=== PATIENT | female | born 1940 | race Caucasian/White ===

== ENCOUNTER 2016-04-19 10:35 | Outpatient (CLI) | payer MEDICARE | END 2016-04-19 10:36 | disposition home or self-care (01) | DX: R31.9 Hematuria, unspecified (principal) ==

== ENCOUNTER 2016-04-19 12:44 | Outpatient (CLI) | payer MEDICARE ==
[2016-04-19] MEDS ORDERED: IOPAMIDOL-300 50 ML VIAL PO ONE (14:46)
[2016-04-19] MEDS ORDERED: IOPAMIDOL-300 100 ML VIAL IVP ONE (14:46)
== END 2016-04-19 12:45 | disposition home or self-care (01) ==
DX: K57.32 Diverticulitis of large intestine without perforation or abscess without bleeding (principal); R31.9 Hematuria, unspecified
CPT/HCPCS: 36415; 74177; 80048; 87086; Q9967

== ENCOUNTER 2016-05-28 14:34 | Outpatient (CLI) | payer MEDICARE ==
--- NOTE | 2016-05-29 17:31 | Mammography Report ---
DIGITAL SCREENING MAMMOGRAM: 05/28/2016 CLINICAL INDICATION: A 76-year-old for screening. COMPARISON: 04/2015, 03/2014, 02/2013, 01/2012, 10/2010, 10/2009, 10/2008, 10/2007, 10/2006. TECHNIQUE: Routine CC and MLO projections were obtained of the breasts. The breasts demonstrate heterogeneously dense fibroglandular parenchyma bilaterally. Coarse and punc shelby, typically benign calcifications are present. No suspicious masses, clustered microcalcificatio ns, or regions of architectural distortion are identified. IMPRESSION: BENIGN FINDINGS. RECOMMENDATION: ROUTINE ANNUAL SCREENING UNLESS OTHERWISE CLINICALLY INDICATED. BIRADS CATEGORY: 2, BENIGN FINDINGS. STANDARD QUALIFYING STATEMENTS 1. This examination was reviewed with the aid of Computed-Aided Detection (CAD). 2. A negative or benign imaging report should not delay biopsy if clinically suspicious findings are present. Consider surgical consultation if warranted. More than 5% of cancers are not identified b y imaging. 3. Dense breasts may obscure an underlying neoplasm. JOB #: [id number] EXT JOB #:[id number]
== END 2016-05-28 14:35 | disposition home or self-care (01) ==
LOC: DI.N 14:34
PROVIDERS: ATTEND Family Medicine
DX: Z12.31 Encounter for screening mammogram for malignant neoplasm of breast (principal)
CPT/HCPCS: 77067

== ENCOUNTER 2016-09-26 08:00 | Outpatient (CLI) | payer MEDICARE ==
[2016-09-26 13:44] LABS: BASOPHILS # (AUTO) 0.1 10^3/uL (0.0-0.1); BASOPHILS % (AUTO) 1.2 %; EOSINOPHILS # (AUTO) 0.5 10^3/uL (0.0-0.7); EOSINOPHILS % (AUTO) 5.5 %; HCT - HEMATOCRIT 40.6 % (37.0-47.0); HGB - HEMOGLOBIN 13.7 g/dL (12.0-16.0); LYMPHOCYTES # (AUTO) 2.8 10^3/uL (1.5-3.5); LYMPHOCYTES % (AUTO) 27.8 %; MEAN CORPUSCULAR HEMOGLOBIN 30.4 pg (27.0-31.0); MEAN CORPUSCULAR HGB CONC 33.8 g/dL (32.0-36.0); MEAN CORPUSCULAR VOLUME 90.1 fL (81.0-99.0); MEAN PLATELET VOLUME 7.6 fL (7.9-10.8); MONOCYTES # (AUTO) 0.9 10^3/uL (0.0-1.0); MONOCYTES % (AUTO) 9.2 %; NEUTROPHILS # (AUTO) 5.6 10^3/uL (1.5-6.6); NEUTROPHILS % (AUTO) 56.3 %; RED CELL DISTRIBUTION WIDTH 14.2 % (12.0-15.0); UNCORRECTED WHITE BLOOD COUNT 9.9 x10^3/uL; WHITE BLOOD COUNT 9.9 x10^3/uL (4.8-10.8)
[2016-09-26 14:01] LABS: ALBUMIN/GLOBULIN RATIO 1.2 (1.0-2.2); BILIRUBIN,TOTAL 1.1 mg/dL (0.2-1.0); CALCIUM 9.2 mg/dL (8.5-10.3); CREATININE 0.6 mg/dL (0.4-1.0); POTASSIUM 4.1 mmol/L (3.5-5.0); TOTAL PROTEIN 7.4 g/dL (6.7-8.2)
== END 2016-09-26 08:01 | disposition home or self-care (01) ==
LOC: LAB.WCP 08:00
PROVIDERS: ATTEND Family Medicine
DX: M81.0 Age-related osteoporosis without current pathological fracture (principal)
CPT/HCPCS: 36415; 80053; 85025

== ENCOUNTER 2016-11-08 09:00 | Outpatient (CLI) | payer OTHER, MEDICARE | END 2016-11-08 09:01 | disposition EMS.NT | LOC: EMS 09:00 | PROVIDERS: ATTEND Surgery | DX: Z04.1 Encounter for examination and observation following transport accident (principal); V59.88XA Occupant (driver) (passenger) of pick-up truck or van injured in other specified transport accidents, initial encounter; Y92.414 Local residential or business street as the place of occurrence of the external cause ==

== ENCOUNTER 2016-11-08 09:42 | Emergency (ER) | payer OTHER, MEDICARE ==
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
--- NOTE | 2016-11-08 11:01 | CT Preliminary Report ---
Exam: CT Chest W/O IMPRESSION: 1. The lungs demonstrate no evidence of consolidation or pneumothorax. 2. There is displaced left fourth lateral rib fracture. 3. Heart size is within normal limits. Aortic contour is normal. No evidence of mediastinal hematoma. [facility] SITE ID: [id number]
--- NOTE | 2016-11-08 11:04 | CT Preliminary Report ---
Exam: CT Head W/O IMPRESSION: No acute intracranial CT abnormality. [facility] SITE ID: [id number]
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
[2016-11-08 11:46] VITALS: BP 148/74
== END 2016-11-08 11:46 | disposition home or self-care (01) ==
LOC: ED 09:42
DX: S22.32XA Fracture of one rib, left side, initial encounter for closed fracture (principal); S06.0X9A Concussion with loss of consciousness of unspecified duration, initial encounter; V57.5XXA Driver of pick-up truck or van injured in collision with fixed or stationary object in traffic accident, initial encounter; Y93.84 Activity, sleeping; Z79.82 Long term (current) use of aspirin
CPT/HCPCS: 70450; 71250; 93005; 99283

== ENCOUNTER 2017-06-26 10:43 | Outpatient (CLI) | payer MEDICARE ==
[2017-06-26] MEDS ORDERED: IOPAMIDOL-300 50 ML VIAL PO ONE (10:58)
[2017-06-26 11:20] LABS: ALBUMIN 3.9 g/dL (3.2-5.5); BILIRUBIN,TOTAL 0.9 mg/dL (0.2-1.0); CREATININE 0.7 mg/dL (0.4-1.0); TOTAL PROTEIN 7.8 g/dL (6.7-8.2)
[2017-06-26] MEDS ORDERED: IOPAMIDOL-300 100 ML VIAL IVP ONE (12:04)
--- NOTE | 2017-06-26 12:33 | CT Report ---
CT ABDOMEN AND PELVIS WITH CONTRAST: 06/26/2017 CLINICAL INDICATION: Left lower quadrant pain. TECHNIQUE: Axial CT images of the abdomen and pelvis were obtained with 100 mL Isovue 300 intravenously as well as oral contrast. COMPARISON: 04/19/2016. FINDINGS: Limited evaluation of the lung bases is unremarkable. ABDOMEN: The liver, spleen, pancreas, kidneys and adrenal glands appear unremarkable. The gallbladder is not dilated. No bowel dilatation, free gas, or free fluid is present. No abdominal adenopathy is seen. PELVIS: Inflammation is again seen around the sigmoid colon, compatible with uncomplicated diverticulitis. No abscess or perforation is identified. No free fluid or pelvic adenopathy is appreciated. Osseous structures demonstrate degenerative changes. IMPRESSION: UNCOMPLICATED SIGMOID DIVERTICULITIS. NO EVIDENCE OF ABSCESS OR PERFORATION. In accordance with CT protocol optimization, one or more of the following dose reduction techniques were utilized for this exam: automated exposure control, adjustment of mA and/or KV based on patient size, or use of iterative reconstructive technique. TD: 06/26/2017 12:32
== END 2017-06-26 10:44 | disposition home or self-care (01) ==
LOC: LAB 10:43
PROVIDERS: ATTEND Physician Assistant
DX: K57.32 Diverticulitis of large intestine without perforation or abscess without bleeding (principal)
CPT/HCPCS: 36415; 74177; 80053; Q9967

== ENCOUNTER 2017-07-19 10:17 | Outpatient (CLI) | payer MEDICARE ==
--- NOTE | 2017-07-22 13:59 | Mammography Report ---
DIGITAL SCREENING MAMMOGRAM: 07/19/2017 CLINICAL INDICATION: A 77-year-old for screening. COMPARISON: 05/2016, 04/2015, 03/2014, 02/2013, 01/2012, 10/2010, 10/2009. TECHNIQUE: Routine CC and MLO projections were obtained of the breasts. FINDINGS: The breasts again demonstrate heterogeneously dense fibroglandular parenchyma bilaterally. Coarse and punctate, typically benign calcifications are present. No suspicious masses, clustered microcalcifications, or regions of architectural distortion are identified. IMPRESSION: BENIGN FINDINGS. RECOMMENDATION: Routine annual screening unless otherwise clinically indicated. BI-RADS CATEGORY 2 - BENIGN FINDINGS. STANDARD QUALIFYING STATEMENTS: 1. This examination was reviewed with the aid of Computer-Aided Detection (CAD). 2. A negative or benign imaging report should not delay biopsy if clinically suspicious findings are present. Consider surgical consultation if warranted. More than 5% of cancers are not identified by imaging. 3. Dense breasts may obscure an underlying neoplasm. TD: 07/22/2017 13:58
== END 2017-07-19 10:18 | disposition home or self-care (01) ==
LOC: DI.N 10:17
PROVIDERS: ATTEND Family Medicine
DX: Z12.31 Encounter for screening mammogram for malignant neoplasm of breast (principal)
CPT/HCPCS: 77067

== ENCOUNTER 2017-09-30 13:57 | Outpatient (CLI) | payer MEDICARE ==
[2017-09-30] MEDS ORDERED: IOPAMIDOL-300 50 ML VIAL PO ONE (14:15)
[2017-09-30] MEDS ORDERED: IOPAMIDOL-300 100 ML VIAL ONE (14:22)
[2017-09-30] MEDS ORDERED: IOPAMIDOL-300 50 ML VIAL ONE (14:22)
[2017-09-30 14:32] LABS: CALCIUM 8.8 mg/dL (8.5-10.3); CREATININE 0.5 mg/dL (0.4-1.0)
[2017-09-30] MEDS ORDERED: IOPAMIDOL-300 100 ML VIAL IVP ONE (15:42)
--- NOTE | 2017-09-30 15:59 | CT Report ---
Procedure Date: 09/30/2017 Accession Number: [id number] / [id number] Procedure: CT - Abdomen/Pelvis W/ CPT Code: FULL RESULT: EXAM: Abdomen/Pelvis W/ DATE: 09/30/2017 3:48 PM CLINICAL HISTORY: ABDOMINAL PAIN. LLQ COMPARISON: None. TECHNIQUE: Routine helical CT imaging was performed through the abdomen and pelvis. IV contrast: amt/type. Enteric contrast: Yes. Reconstructions: Coronal and sagittal. In accordance with CT protocol optimization, one or more of the following dose reduction techniques were utilized for this exam: automated exposure control, adjustment of mA and/or KV based on patient size, or use of iterative reconstructive technique. FINDINGS: Lung Bases: Unremarkable. Liver: Normal. No masses. Gallbladder/Bile Ducts: Unremarkable. Spleen: Normal. Pancreas: Normal. Adrenal Glands: Normal. Kidneys: Normal. No masses or hydronephrosis. Peritoneal Cavity/Bowel: Normal. No free fluid, free air or adenopathy. No mass. The appendix is not visualized, however there is no lymphadenopathy and no fat stranding in the region of the right lower quadrant. Pelvic Organs: Normal. The bladder and visualized pelvic organs are within normal limits. Vasculature: There is unilateral and engorgement of the left gonadal vein and pelvic plexus in proximity to the aforementioned diverticulitis. Bones: No significant abnormality. Other: None. IMPRESSION: Acute diverticulitis without macro perforation or drainable abscess. Unilateral left prominent pelvic plexus/varicoceles. If the patient has an additional background of chronic pelvic pain, pelvic congestion syndrome should be entertained as an additional diagnosis. [facility]
== END 2017-09-30 13:58 | disposition home or self-care (01) ==
LOC: LAB 13:57 → DI 13:58
PROVIDERS: ATTEND Physician Assistant
DX: K57.92 Diverticulitis of intestine, part unspecified, without perforation or abscess without bleeding (principal); Z79.899 Other long term (current) drug therapy
CPT/HCPCS: 36415; 74177; 80048; Q9967

== ENCOUNTER 2017-11-21 10:35 | Outpatient (CLI) | payer MEDICARE ==
[2017-11-21 11:05] LABS: BASOPHILS # (AUTO) 0.1 10^3/uL (0.0-0.1); BASOPHILS % (AUTO) 1.1 %; EOSINOPHILS # (AUTO) 0.5 10^3/uL (0.0-0.7); LYMPHOCYTES # (AUTO) 2.6 10^3/uL (1.5-3.5); MEAN CORPUSCULAR HEMOGLOBIN 30.4 pg (27.0-31.0); MEAN CORPUSCULAR HGB CONC 33.7 g/dL (32.0-36.0); MEAN CORPUSCULAR VOLUME 90.2 fL (81.0-99.0); MEAN PLATELET VOLUME 7.1 fL (7.9-10.8); MONOCYTES # (AUTO) 0.8 10^3/uL (0.0-1.0); MONOCYTES % (AUTO) 7.4 %; NEUTROPHILS # (AUTO) 7.3 10^3/uL (1.5-6.6); NEUTROPHILS % (AUTO) 64.5 %; PLT - PLATELET COUNT 362 10^3/uL (130-450); RED BLOOD COUNT 4.61 10^6/uL (4.20-5.40); RED CELL DISTRIBUTION WIDTH 14.6 % (12.0-15.0); WHITE BLOOD COUNT 11.3 x10^3/uL (4.8-10.8)
[2017-11-21 11:35] LABS: CALCIUM 9.1 mg/dL (8.5-10.3); CREATININE 0.6 mg/dL (0.4-1.0)
== END 2017-11-21 10:36 | disposition home or self-care (01) ==
LOC: LAB 10:35
PROVIDERS: ATTEND Registered Nurse
DX: K57.32 Diverticulitis of large intestine without perforation or abscess without bleeding (principal); D50.9 Iron deficiency anemia, unspecified
CPT/HCPCS: 36415; 80048; 85025

== ENCOUNTER 2017-11-25 07:06 | Day surgery (SDC) | payer MEDICARE ==
[2017-11-25] MEDS ORDERED: LACTATED RINGERS 1,000 ML IV ONE (07:45)
--- NOTE | 2017-11-25 08:10 | SURGERY HX AND PHYSICAL(T) ---
Surgical History & Physical - PMH/PSH/Social Hx Does the pt have a hx of MRSA?: No Eyes, Ears, Nose, Throat: None Cardiovascular: Murmur Respiratory: None Skin: None Endocrine/Autoimmune: None Gastrointestinal: GERD, Diverticulitis Urinary: None Musculoskeletal: Osteoarthritis, Osteoporosis, Osteopenia, Other Psychiatric: Anxiety General: Appendectomy, Colonoscopy Orthopedic: ACL reconstruction Eyes Ears Nose Throat (EENT): Cataracts Smoking Status: Never smoker Does the pt drink ETOH?: Yes Frequency: Daily Number: 1 Amount/day: Drinks/day Does the pt have substance abuse?: No - Home Meds and Allergies Home Medications: Aspirin [Aspir 81] 81 mg PO DAILY 10/28/12 Calcium Carbonate/Vitamin D3 [Calcium + Vitamin D Tablet] 2 each PO DAILY Raloxifene [Evista] 60 mg PO DAILY 10/28/12 Ferrous Sulfate [Slow Fe] 1 tab PO UD 11/08/16 Fluticasone [Flonase] 2 sprays JEOVANY DAILY PRN 11/21/17 Red Yeast Rice 600 mg PO DAILY 11/21/17 Allergies/Adverse Reactions: Allergies Allergy/AdvReac Type Severity Reaction Status Date / Time Penicillins Allergy Rash Verified 11/21/17 11:20 acyclovir AdvReac Nausea Verified 11/21/17 11:20 ciprofloxacin [From Cipro] AdvReac Nausea Verified 11/21/17 11:20 codeine [Codeine] AdvReac Emesis Verified 11/21/17 11:20 hydrocodone AdvReac Emesis Verified 11/21/17 11:20 - Vital Signs Blood Pressure: 125/70 Temperature: 36.7 C Respiratory Rate: 16 O2 Saturation: 97 Weight (kg): 59.5 kg Height: 1.65 m - Patient Review Patient Review: Problems were reviewed with the patient during this visit. Medications were reviewed with the patient during this visit. Allergies were reviewed this patient during this visit. Pertinent Tests Reviewed: All pertitent test for this patient were reviewed. - Assessment & Plan Assessment and Plan: On October 17, Dr. Lemon sent this very pleasant 77 year-old female to my office in consultation for recurrent diverticulitis. She is and was accompanied by her . She describes her bowel movements as regular and normal. She denies nausea, vomiting, constipation, melena, hematochezia, hematemesis, abdominal pain, unexplained weight loss, or change in the color, character, or caliber of her stool. Patient recently had a CT abdomen/ pelvis which found diverticulitis of the sigmoid colon. Patient states that she has had diarrhea which is now starting to resolve. Patient also states that she has had 3 attacks of diverticulitis in the past year, always radiating to the left side. Mary is understandably fearful of having another attack. Patient was counseled on a high fiber diet and to ensure that she is staying hydrated. We also discussed the use of a daily probiotic, yogurt or pickled foods which I believe will be helpful. At that time we discussed the fact that elective sigmoid resection is indicated to help prevent recurrent attacks and even free perforation of her colon. This colonoscopy is in preparation for this resection to ensure that we are dealing with diverticular disease and not malignancy. Because more than 30 days passed from the time the patient was seen to the time of the procedure this update history and physical is mandated. Current Allergies: PENICILLIN V POTASSIUM (Critical) CODEINE (Critical) VICODIN (Moderate) ACYCLOVIR (ACYCLOVIR) (Moderate) CIPRO (Mild) Current Meds: SUPREP BOWEL PREP KIT 17.5-3.13-1.6 GM/180ML ORAL SOLUTION (NA SULFATE-K SULFATE -MG SULF) Take one (6oz) bottle by mouth the PM before colonoscopy & one (6oz) bottle by mouth the AM of colonoscopy as directed by surgical clinic FLONASE 50 MCG/ACT NASAL SUSPENSION (FLUTICASONE PROPIONATE) Use two sprays in each nostril daily. [employer] RED YEAST RICE CAPSULE (RED YEAST RICE EXTRACT CAPS) Take one capsule by mouth daily FERROUS SULFATE 325 (65 Fe) MG ORAL TABLET (FERROUS SULFATE) Take one tablet every other day ASPIRIN EC 81 MG ORAL TABLET DELAYED RELEASE (ASPIRIN) Take one tablet by mouth daily CALTRATE 600 PLUS-VIT D TABS (CALCIUM-VITAMIN D TABS) Take two tablets by mouth daily EVISTA 60 MG ORAL TABLET (RALOXIFENE HCL) Take one tablet by mouth daily I am not prescribing physician nor did I evaluate the patient for the appropriateness of the medication, frequency, or dose. Quite simply, this program will not let me complete this history and physical without medication reconciliation. There is also no way to make the prescribing physician aware within this program. I assume that the risks, benefits and interaction have been discussed with the patient by the prescribing physician. Signing this does not imply or infer that I am in agreement with the medication, route, appropriateness, frequency, or potential interactions. Signing this allows me to finish this document-nothing more. Past Medical History: Multiple sensitivities, see list Anemia Balance Disturbance/Weakness Heart Murmur Shortness of Breath Anemia Frequent Indigestion heartburn Acid Reflux Simple review of Centricity, the chart, and discussion with the patient reveals that the information included here is incomplete and possibly incorrect. The problem list should also not be viewed as current, complete or correct. Past Surgical History: Age 10--Appendectomy 1984--Lap. BTL 03.23. 2003--[facility], Colonoscopy, [place], Diverticular dis. only 2005--L. Knee ACL repair w/hamstring graft Cataract surgery 12/28 Tubal ligation Simple review of Centricity, the chart, and discussion with the patient reveals that the information included here is incomplete and possibly incorrect. The problem list should also not be viewed as current, complete or correct. Family History Summary: Reviewed history Last on 09/30/2017 and no changes required:10/21/2017 Mother (biol.) - Has a Hx of Migraines - Entered On: 04/20/2014 Mother (biol.) - Has a Hx of Osteoporosis - Entered On: 04/20/2014 Mother (biol.) - Has Family History of Stroke/CVA - Entered On: 10/17/2017 General Comments - FH: Father: , multiple myeloma Mother: Mother in late 80's, CVA, mother AMI in her late 70's, CAD Sister: 78, [place], smoker Brother: CABG Simple review of Centricity, the chart, and discussion with the patient reveals that the information included here is incomplete and possibly incorrect. The problem list should also not be viewed as current, complete or correct. Risk Factors: Smoked Tobacco Use: Never smoker Drug use: no Alcohol use: yes Type: Wine Drinks per day: 2 Exercise: no Review of Systems CONSTITUTIONAL: No weight loss, fever, chills, weakness or fatigue. HEENT: Eyes: No visual loss, blurred vision, double vision or yellow sclerae. Ears, Nose, Throat: No hearing loss, sneezing, congestion, runny nose or sore throat. SKIN: No rash or itching. CARDIOVASCULAR: No chest pain, chest pressure or chest discomfort. No palpitations or edema. RESPIRATORY: No shortness of breath, cough or sputum. GASTROINTESTINAL: See above. GENITOURINARY: No dysuria. Not . NEUROLOGICAL: No headache, dizziness, syncope, paralysis, ataxia, numbness or tingling in the extremities. No change in bowel or bladder control. MUSCULOSKELETAL: No muscle, back pain, joint pain or stiffness. HEMATOLOGIC: No anemia, bleeding or bruising. LYMPHATICS: No enlarged nodes. No history of splenectomy. PSYCHIATRIC: No history of depression or anxiety. ENDOCRINOLOGIC: No reports of sweating, cold or heat intolerance. No polyuria or polydipsia. ALLERGIES: No history of asthma, hives, eczema or rhinitis. Physical Exam General: Evaluated in Bed 4 at [facility], 77 year old female, appears stated age, well developed, well nourished HEENT: Normocephalic, atraumatic, extraocular movement intact, mucous membranes pink and moist, sclera anicteric and not injected Neck: Supple without pain on palpation, mass or bruit Cardiac: Regular rate and rhythm without rub, gallop, or murmur Chest: Clear to auscultation bilaterally Abdomen: Soft, nontender, normoactive bowel sounds, no hepatomegaly, no splenomegaly, well healed periumbilical incision Genitourinary: Deferred Rectal: Deferred until colonoscopy Extremities: No gross neurovascular problem, no clubbing, cyanosis or edema Impression & Recommendations: Diverticulitis of sigmoid colon Screening colonoscopy with possible biopsies and/or polypectomies. Indications , procedure, alternatives (such as barium enema, Cologuard and even no procedure at all) and risks including but not limited to perforation requiring operative repair, bleeding with its risks, and were fully explained to him. In the office, I sen diagrams explaining the colonic anatomy and the proposed procedure and handed it to him. In the office, conscious sedation was discussed at length with him as were its risks including but not limited to loss of airway, aspiration, respiratory depression, and not enough relief of pain and anxiety and he indicated that he wished to have conscious sedation for his procedure. In the office, I explained that MAC anesthesia is associated with a higher incidence of colon perforation. Review of his history does not reveal any significant systemic disease that would contraindicate use of conscious sedation or MAC anesthesia. All questions were fully answered. Verbal and written consent was obtained. The patient in preparation for his colonoscopy has been n.p.o. and his colon has been mechanically prepped. 20 minutes of [id number] time spent with the patient the majority of which was spent in discussion and in the generation of this document
[2017-11-25] MEDS ORDERED: MIDAZOLAM 2 MG/2 ML VIAL IVP ONE (08:19)
[2017-11-25] MEDS ORDERED: fentaNYL 100 MCG/2 ML VIAL IVP ONE (08:19)
[2017-11-25 09:24] VITALS: BP 122/60
== END 2017-11-25 07:07 | disposition home or self-care (01) ==
LOC: SDS 07:06
PROVIDERS: ATTEND Surgery
PROC: 0DJD8ZZ Inspection of Lower Intestinal Tract, Via Natural or Artificial Opening Endoscopic (ICD-10-PCS; principal; 2017-11-25 08:15)
DX: Z12.11 Encounter for screening for malignant neoplasm of colon (principal); K57.30 Diverticulosis of large intestine without perforation or abscess without bleeding; K63.5 Polyp of colon; K64.8 Other hemorrhoids; K21.9 Gastro-esophageal reflux disease without esophagitis; F41.9 Anxiety disorder, unspecified; Z79.82 Long term (current) use of aspirin
CPT/HCPCS: 86850; 86900; 86901; G0121; J7120

== ENCOUNTER 2017-11-26 08:30 | Inpatient (IN) | payer MEDICARE ==
[2017-11-26] MEDS ORDERED: SODIUM CHLORIDE FLUSH 0.9% 10 ML SYRINGE ONE (09:09)
[2017-11-26] MEDS ORDERED: LACTATED RINGERS 1,000 ML IV ONE ×3 (10:13→14:50)
--- NOTE | 2017-11-26 10:40 | ANESTHESIA ---
Pre-Anesthesia VS, & Labs - Diagnosis Sigmoid diverticulitis - Procedure Sigmoid colectomy Vital Signs: Temp Pulse Resp BP Pulse Ox 36.9 C 16 121/63 99 11/26/17 10:22 11/26/17 10:22 11/26/17 10:22 11/26/17 10:22 Height 5 ft 5 in Weight (kg) 59.6 kg Body Mass Index 20.7 - NPO >8 hours - Is Patient ?: No, Not Applicable - Lab Results Lab results reviewed: Yes Fish Bones: 11/29/17 05:30 11/29/17 05:30 Home Medications and Allergies Home Medications: Ambulatory Orders Medication Instructions Recorded Confirmed RX: Aspirin [Aspir 81] 81 mg PO DAILY 10/28/12 11/26/17 RX: Calcium Carbonate/Vitamin D3 2 each PO DAILY 10/28/12 11/26/17 [Calcium 600-Vit D3 200 Tablet] RX: Raloxifene [Evista] 60 mg PO DAILY 10/28/12 11/26/17 RX: Ferrous Sulfate [Slow Fe] 1 tab PO UD 11/08/16 11/26/17 RX: Fluticasone [Flonase] 2 sprays JEOVANY DAILY PRN 11/21/17 11/26/17 RX: Red Yeast Rice 600 mg PO DAILY 11/21/17 11/21/17 Docusate Sodium 250Mg Capsule 250 mg PO DAILY #10 capsule 11/29/17 [Colace 250Mg Capsule] oxyCODONE/ACET 5/325 [Percocet 5 1 each PO Q4-6H #10 tablet 11/29/17 mg/325 mg] Allergies/Adverse Reactions: Allergies Allergy/AdvReac Type Severity Reaction Status Date / Time Penicillins Allergy Rash Verified 11/21/17 11:20 acyclovir AdvReac Nausea Verified 11/21/17 11:20 ciprofloxacin [From Cipro] AdvReac Nausea Verified 11/21/17 11:20 codeine [Codeine] AdvReac Emesis Verified 11/21/17 11:20 hydrocodone AdvReac Emesis Verified 11/21/17 11:20 Anes History & Medical History - Medical History Cardiovascular: reports: Murmur Pulmonary: reports: None Gastrointestinal: reports: GERD, Diverticulitis Urinary: reports: None Musculoskeletal: reports: Osteoporosis Endocrine/Autoimmune: reports: None Skin: reports: None Smoking Status: Never smoker - Surgical History General: Appendectomy, Colonoscopy Eyes Ears Nose Throat (EENT): Cataracts Orthopedic: ACL reconstruction Plan Anesthesia Type: General Consent for Procedure(s) Verified and Reviewed: Yes Code Status: Attempt Resuscitation ASA classification: 2-Mild systemic disease Is this case an emergency?: No
--- NOTE | 2017-11-26 10:49 | ANESTHESIA ---
Pre-Anesthesia VS, & Labs - Diagnosis Sigmoid diverticulitis - Procedure Sigmoid colectomy Vital Signs: Temp Pulse Resp BP Pulse Ox 36.9 C 16 121/63 99 11/26/17 10:22 11/26/17 10:22 11/26/17 10:22 11/26/17 10:22 Height 5 ft 5 in Weight (kg) 59.6 kg Body Mass Index 20.7 - NPO >8 hours - Is Patient ?: Not Applicable - Lab Results Lab results reviewed: Yes Home Medications and Allergies Home Medications: Ambulatory Orders Medication Instructions Recorded Confirmed Aspirin [Aspir 81] 81 mg PO DAILY 10/28/12 11/21/17 Calcium Carbonate/Vitamin D3 2 each PO DAILY 10/28/12 11/21/17 [Calcium + Vitamin D Tablet] Raloxifene [Evista] 60 mg PO DAILY 10/28/12 11/21/17 Ferrous Sulfate [Slow Fe] 1 tab PO UD 11/08/16 11/21/17 Fluticasone [Flonase] 2 sprays JEOVANY DAILY PRN 11/21/17 11/21/17 Red Yeast Rice 600 mg PO DAILY 11/21/17 11/21/17 Allergies/Adverse Reactions: Allergies Allergy/AdvReac Type Severity Reaction Status Date / Time Penicillins Allergy Rash Verified 11/21/17 11:20 acyclovir AdvReac Nausea Verified 11/21/17 11:20 ciprofloxacin [From Cipro] AdvReac Nausea Verified 11/21/17 11:20 codeine [Codeine] AdvReac Emesis Verified 11/21/17 11:20 hydrocodone AdvReac Emesis Verified 11/21/17 11:20 Anes History & Medical History - Anesthetic History Anesthesia Complications: reports: No previous complications Family history of Anesthesia Complications: Denies Family history of Malignant Hyperthermia: Denies - Medical History Cardiovascular: reports: Murmur Pulmonary: reports: None Gastrointestinal: reports: GERD, Diverticulitis Urinary: reports: None Neuro: reports: Head injury Musculoskeletal: reports: Osteoarthritis, Osteoporosis Endocrine/Autoimmune: reports: None Blood Disorders: reports: None Skin: reports: None Smoking Status: Never smoker Psychosocial: reports: No issues indicated - Surgical History General: Appendectomy, Colonoscopy Eyes Ears Nose Throat (EENT): Cataracts Orthopedic: ACL reconstruction Other Past Surgical History: Bepharoplasty Results - EKG Results EKG Comparison: Reviewed EKG (Old EKG, no history of [place] or HTN) Exam General: Alert Dental: WNL Mouth Opening: Greater than 4 Fingerbreadths Neck Mobility: Normal Mallampati classification: I Thyromental Distance: greater than 6 cm Respiratory: Lungs clear Cardiovascular: Regular rate, Other (Faint SAMSON) Mental/Cognitive Status: Alert/Oriented X3 Cognitive Status: Within normal limits Plan Anesthesia Type: General, Epidural Consent for Procedure(s) Verified and Reviewed: Yes Code Status: Attempt Resuscitation ASA classification: 2-Mild systemic disease Is this case an emergency?: No
[2017-11-26] MEDS ORDERED: BUPIVACAINE 0.5%-EPI 1:200000 PF 30 ML VIAL ONE (11:50)
[2017-11-26] MEDS ORDERED: DEXAMETHASONE 4 MG/ML VIAL IVP ONE (13:19)
[2017-11-26] MEDS ORDERED: MIDAZOLAM 2 MG/2 ML VIAL IVP ONE (13:19)
[2017-11-26] MEDS ORDERED: PROPOFOL 200 MG/20 ML VIAL IVP ONE (13:19)
[2017-11-26] MEDS ORDERED: GLYCOPYRROLATE 1 MG/5 ML VIAL IVP ONE (13:19)
[2017-11-26] MEDS ORDERED: PHENYLEPHRINE 50 MG/5 ML VIAL IV ONE (13:19)
[2017-11-26] MEDS ORDERED: ePHEDrine 50 MG/ML VIAL IVP ONE (13:19)
[2017-11-26] MEDS ORDERED: ONDANSETRON 4 MG/2 ML VIAL IVP ONE (13:19)
[2017-11-26] MEDS ORDERED: fentaNYL 100 MCG/2 ML VIAL IVP ONE (13:19)
[2017-11-26] MEDS ORDERED: ROCURONIUM 50 MG/5 ML VIAL IVP ONE (13:19)
[2017-11-26] MEDS ORDERED: LIDOCAINE-MPF 2% 5 ML VIAL IM ONE (13:19)
[2017-11-26] MEDS ORDERED: NEOSTIGMINE 1 MG/1 ML 10 ML MDV IVP ONE (13:19)
--- NOTE | 2017-11-26 15:14 | OPERATIVE REPORT ---
Operative Report - General Admit Date: 11/26/17 Planned Procedure: Sigmoidectomy Pre-Op Diagnosis: Recurrent diverticulitis Procedure Performed: Sigmoidectomy (Dr. Shamir Lechuga primary, Dr. Tolu Pastrana physician assistant) Rigid proctoscopy (Dr. Shamir Lechuga, Dr. Tolu Pastrana) Colonoscopy (Dr. Tolu Pastrana) Post Op Diagnosis: Recurrent diverticulitis - Procedure Note Primary Surgeon: Dr. Shamir Lechuga Secondary Surgeon: Dr. Tolu Pastrana Anesthesia Provider: Bill Barrientos CRNA Anesthesia Technique: Epidural, General ET tube IV Fluids (mL): 2,000 Estimated Blood Loss (mL): 50 Urine Output (mL): 200 Complications: None. - Other Other Information/Narrative: OPERATIVE DESCRIPTION/REPORT: After verbal and written informed consent was obtained detailing the risks of infection, bleeding requiring transfusion with its risks, nerve injury, and , and after I met with the patient confirming the surgery and the site of the surgery, the patient was brought to the operative suite and placed supine on the operating table. An epidural catheter was placed by anesthesia for intra- operative and post-operative pain control. Great care was taken to avoid pressure points to prevent pressure necrosis or nerve injury. Monitoring devices were applied along with TEDs and pneumatic compressive stockings (to prevent DVT). The patient received preoperative antibiotics for surgical prophylaxis. Bill Barrientos CRNA sedated and anesthetized the patient for the entire procedure. The patient was prepped and draped in the usual sterile manner. With the patient draped my initials were clearly visible. A "time in" then confirmed that the patient was identified with 3 identifiers (name, date and medical record number), the history and physical was in the chart, the signed consent confirming the procedure was in the chart, the patient was in the correct position, the aforementioned prophylactic measures were in place or given, we had the correct personel and equipment to complete the procedure and that anesthesia, surgery and nursing were given an opportunity to express any concerns. With the agreement of everyone in the room, we proceeded with the ope ration. A midline incision was made infraumbilically and taken down to the fascia. The incision extended from the umbilicus to above the pubic tubercle. Once this was taken down to the fascia, the fascia and peritoneum were opened without incident or difficulty. The sigmoid colon was markedly redundant. The sigmoid colon was examined and the clearly thickened and abnormal colon was easily identified within the mid-portion of the sigmoid. The colon was freed from its attachments to the lateral abdominal wall using Bovie electrocautery at the white line of Toldt. The proximal sigmoid colon was selected as the proximal point of resection and a JONATAN-75 stapler was used to transect the colon at this point. The mesentery was then taken sequentially using serial application of the Ligasure device. The dissection continued down to just above the peritoneal reflection. The posterior dissection was done using fserial application of the Ligasure device. As the patient was not found to have malignancy on the colonoscopy done yesterday a complete mesenteric resection was not indicated and not performed. The left ureter was identified and avoided. Larger vasculature along the pelvic sidewalls was ligated with 2-0 Vicryl. After dissecting beyond the thickened colon, an Ethicon Contour stapler was obtained and placed across the distal rectum and fired. An approximately 8 inch specimen was delivered from the operative field. Sizers determined that the optimal stapler would be a 28mm EEA stapler and this size stapler was obtained. An automatic purse tring device was placed across the proximal sigmoid colon and a 3-0 Prolene on a Vaughn needle was used to form the purse string. After the stapled end was removed, the anvil was placed in the open and of the colon and the purse string tied against the post of the anvil. Fat that was adherent to the colon was removed using Bovie electrocautery. There was enough length to the colon for it to go into the pelvis without tension. Dr. Tolu Pastrana then serially dilated the patients anus with his fingers and water-soluble lubricant in order that the stapler could be inserted. The aforementioned EEA stapler was inserted by Dr. Tolu Pastrana into the patients rectum through the anus and carefully directed to the staple line by me. Dr. Pastrana advanced the spike under my direction and the spike was inserted into the aforementioned anvil. This was screwed down tight and 3 minutes was allowed to elapse to help with any bleeding. During this 3 minutes, 2-0 Vicryl Limbert sutures were placed at the 12, 3 and 9 o'clock position bridging the anastamosis, and the stapler was fired creating the colocolostomy. The pelvis was filled with warm sterile saline and the proximal colon was obstructed between my two fingers while Dr. Pastrana introduced air through the patients anus using a bulb syringe. It was immediately apparent that there was a large leak and taj were only seen posteriorly. There were no taj seen laterally and anteriorly. I then placed 2-0 Vicryl Limbert sutures between the previously placed sutures and posteriorly as well using the previously placed sutures to maneuver the colon. The apparent leak was at the 7 to 9 o'clock position. Once I had completed placing sutures circumferentially, Dr. Pastrana and then I both tried to perform a rigid proctoscopy to look directly at the anastamosis but both of us were unsuccessful. As an important aside, during both attempts there was no leak of air from the anastamosis. I changed my gown and gloves and Dr. Pastrana then performed a colonoscopy that showed the anastamosis as well as above and below. The anastamosis was widely patent without leak (checked under saline). There was a small diverticulum distal to the anastamosis. There was no bleeding from the anastamosis. I was satisfied with the anastamosis so Dr. Pastrana changed into a sterile gown and gloves. The liver was palpably normal. The abdomen was copiously irrigated with warm saline. The fascia was closed using a 0 PDS in a running fashion. The fascial closure was started superiorly and inferiorly and run to meet in the middle. The knot was dunked. The subcutaneous tissues were copiously irrigated using warm sterile saline and meticulous hemostasis was obtained using Bovie electrocautery. The skin was approximated using skin taj. A dressing were placed on the wound. At this point a time out was performed that confirmed that all the counts were correct, the procedure that was performed, the blood loss, the IV fluids administered, and the patients condition. Having tolerated the procedure well, the patient was extubated and subsequently taken to recovery room in good and stable condition.
[2017-11-26] MEDS ORDERED: ACETAMINOPHEN 1,000 MG/100 ML 100 ML IV PRN (15:16)
[2017-11-26] MEDS ORDERED: fent/BUPIV 2 MCG/0.125% 250 ML EP ONE (15:20)
[2017-11-26] MEDS ORDERED: diphenhydrAMINE INJ 50 MG/ML VIAL IVP PRN ×2 (15:37→20:24)
[2017-11-26] MEDS ORDERED: NALBUPHINE 10 MG/ML AMP IVP PRN ×2 (15:37→20:24)
[2017-11-26] MEDS ORDERED: ONDANSETRON 4 MG/2 ML VIAL IVP PRN ×2 (15:37→20:24)
[2017-11-26] MEDS ORDERED: fent/BUPIV 2 MCG/0.125% 250 ML EP PRN ×2 (15:37→20:26)
[2017-11-26] MEDS: LACTATED RINGERS 1,000 ML IV SCH (16:09)
[2017-11-26] MEDS: SODIUM CHLORIDE FLUSH 0.9% 10 ML SYRINGE IVP SCH (17:11)
[2017-11-26] MEDS: PANTOPRAZOLE 40 MG VIAL IVP SCH (17:23)
[2017-11-26] MEDS ORDERED: cefOXitin 2 GM in SODIUM CHLORIDE 0.9% MINIBAG 100 ML IV ONE (18:00)
--- NOTE | 2017-11-26 20:29 | CONSULTATION NOTE ---
Referring Provider Name of Referring Provider:: Peter Day CRNA Consult Date: 11/26/17 (Called for epidural management because pt has no pain but unable to move feet or bend knees. i reduced infusion from 8 to 4 ml/hr. instructed her nurse to make sure patient is able to feel feet/ bend knees and stand on her own before attempting ambulation. Told her to call for any concerns.) History - Past Medical History Cardiovascular: reports: Murmur Respiratory: reports: None Neuro: reports: Head injury Endocrine/Autoimmune: reports: None GI: reports: GERD, Diverticulitis : reports: None HEENT: reports: None Psych: reports: Anxiety Musculoskeletal: reports: Osteoarthritis, Osteoporosis Derm: reports: None MRSA Hx?: No - Past Surgical History General: reports: Appendectomy, Colonoscopy Ortho: reports: ACL reconstruction HEENT: reports: Cataracts Other past surgical history: Bepharoplasty - POLST Patient has POLST: No Meds/Allgy - Home Medications Home Medications: Ambulatory Orders Medication Instructions Recorded Confirmed Aspirin [Aspir 81] 81 mg PO DAILY 10/28/12 11/26/17 Calcium Carbonate/Vitamin D3 2 each PO DAILY 10/28/12 11/26/17 [Calcium + Vitamin D Tablet] Raloxifene [Evista] 60 mg PO DAILY 10/28/12 11/26/17 Ferrous Sulfate [Slow Fe] 1 tab PO UD 11/08/16 11/26/17 Fluticasone [Flonase] 2 sprays JEOVANY DAILY PRN 11/21/17 11/26/17 Red Yeast Rice 600 mg PO DAILY 11/21/17 11/21/17 - Allergies Allergies/Adverse Reactions: Allergies Allergy/AdvReac Type Severity Reaction Status Date / Time Penicillins Allergy Rash Verified 11/21/17 11:20 acyclovir AdvReac Nausea Verified 11/21/17 11:20 ciprofloxacin [From Cipro] AdvReac Nausea Verified 11/21/17 11:20 codeine [Codeine] AdvReac Emesis Verified 11/21/17 11:20 hydrocodone AdvReac Emesis Verified 11/21/17 11:20 Exam - Vital Signs Vital Signs: Vital Signs x48h Temp Pulse Resp BP BP Pulse Ox 11/26/17 19:37 36.6 C 64 16 103/51 L 98 11/26/17 19:05 36.5 C 70 16 91/49 L 98 11/26/17 17:05 36.4 C L 70 16 89/45 L 99 11/26/17 16:35 36.4 C L 68 16 96/48 L 100 11/26/17 16:05 36.8 C 71 16 93/50 L 97 11/26/17 15:54 36.3 C L 16 96/72 97 11/26/17 15:44 36.3 C L 14 100/52 L 97 11/26/17 15:39 36.3 C L 18 100/50 L 98 11/26/17 15:34 36.3 C L 16 97/63 96 11/26/17 15:29 36.3 C L 14 95/68 96 11/26/17 15:24 36.3 C L 20 97/52 L 97 11/26/17 15:19 36 C L 16 98/55 L 100 Conclusion/Plan - Lab Results Lab results reviewed: Yes
[2017-11-27] MEDS: SODIUM CHLORIDE FLUSH 0.9% 10 ML SYRINGE IVP SCH ×3 (05:40→16:26)
[2017-11-27 06:10] LABS: BASOPHILS % (AUTO) 0.1 %; LYMPHOCYTES # (AUTO) 1.2 10^3/uL (1.5-3.5); LYMPHOCYTES % (AUTO) 7.6 %; MEAN CORPUSCULAR HEMOGLOBIN 30.5 pg (27.0-31.0); MEAN CORPUSCULAR HGB CONC 34.4 g/dL (32.0-36.0); MEAN CORPUSCULAR VOLUME 88.7 fL (81.0-99.0); MEAN PLATELET VOLUME 7.3 fL (7.9-10.8); MONOCYTES # (AUTO) 0.9 10^3/uL (0.0-1.0); MONOCYTES % (AUTO) 5.5 %; NEUTROPHILS # (AUTO) 13.9 10^3/uL (1.5-6.6); NEUTROPHILS % (AUTO) 86.8 %; PLT - PLATELET COUNT 317 10^3/uL (130-450); RED BLOOD COUNT 3.95 10^6/uL (4.20-5.40); RED CELL DISTRIBUTION WIDTH 13.9 % (12.0-15.0); WHITE BLOOD COUNT 16.1 x10^3/uL (4.8-10.8)
[2017-11-27 06:21] LABS: ALBUMIN 3.1 g/dL (3.2-5.5); ALBUMIN/GLOBULIN RATIO 1.1 (1.0-2.2); BILIRUBIN,TOTAL 1.3 mg/dL (0.2-1.0); CALCIUM 8.5 mg/dL (8.5-10.3); CREATININE 0.6 mg/dL (0.4-1.0); TOTAL PROTEIN 5.9 g/dL (6.7-8.2)
[2017-11-27] MEDS: PANTOPRAZOLE 40 MG VIAL IVP SCH (06:37)
[2017-11-27] MEDS: SODIUM CHLORIDE FLUSH 0.9% 10 ML SYRINGE IVP PRN (06:37)
--- NOTE | 2017-11-27 08:48 | PROVIDER PROGRESS NOTE ---
Subjective - General Admit Date: 11/26/17 Procedure Date: 11/26/17 Post Op Days: 1 Procedure Performed: Sigmoidectomy with colocolostomy, rigid proctoscopy, colonoscopy - Review of Systems Wound/Incisions: positive: Dressing dry and intact General: positive: No symptoms (Initially could not feel feet but improving with epidural adjustment. NO pain.) HEENT: positive: No symptoms Pulmonary: positive: No symptoms Cardiovascular: positive: No symptoms Gastrointestinal: positive: No symptoms Genitourinary: positive: No symptoms Musculoskeletal: positive: No symptoms Skin: positive: No symptoms Psychiatric: positive: No symptoms Objective - Patient Data Reviewed Vital Signs: Yes Vital Signs: Vital Signs x48h Temp Pulse Resp BP Pulse Ox 11/27/17 07:36 36.3 C L 61 18 92/49 L 99 11/27/17 07:00 36.7 C 62 16 97/48 L 97 11/27/17 05:20 37.3 C 74 16 99/45 L 96 11/27/17 03:00 37.3 C 74 16 99/45 L 98 Weight: Weight 11/25/17 11/26/17 11/27/17 23:59 23:59 23:59 Weight (kg) 59.6 kg Intake & Output: Intake and Output Totals x24h 11/25/17 11/26/17 11/27/17 23:59 23:59 23:59 Intake Total 2770 1133.333 Output Total 950 1600 Balance 1820 -466.667 - Lab Results Lab Results: 11/27/17 05:45 11/27/17 05:45 Other Lab Results: Lab Results x24hrs 11/27/17 11/27/17 11/27/17 Range/Units 05:54 05:45 05:45 WBC 16.1 H (4.8-10.8) x10^3/uL RBC 3.95 L (4.20-5.40) 10^6/uL Hgb 12.0 (12.0-16.0) g/dL Hct 35.0 L (37.0-47.0) % MCV 88.7 (81.0-99.0) fL MCH 30.5 (27.0-31.0) pg MCHC 34.4 (32.0-36.0) g/dL RDW 13.9 (12.0-15.0) % Plt Count 317 (130-450) 10^3/uL MPV 7.3 L (7.9-10.8) fL Neut # (Auto) 13.9 H (1.5-6.6) 10^3/uL Lymph # (Auto) 1.2 L (1.5-3.5) 10^3/uL Vigo # (Auto) 0.9 (0.0-1.0) 10^3/uL Eos # (Auto) 0.0 (0.0-0.7) 10^3/uL Baso # (Auto) 0.0 (0.0-0.1) 10^3/uL Absolute Nucleated RBC 0.01 x10^3/uL Nucleated RBC % 0.0 /100WBC Sodium 137 (135-145) mmol/L Potassium 4.2 (3.5-5.0) mmol/L Chloride 108 (101-111) mmol/L Carbon Dioxide 21 (21-32) mmol/L Anion Gap 8.0 (6-13) BUN 9 (6-20) mg/dL Creatinine 0.6 (0.4-1.0) mg/dL Estimated GFR (MDRD) 97 (>89) Glucose 136 H (70-100) mg/dL POC Whole Bld Glucose 132 H (70 - 100) mg/dL Calcium 8.5 (8.5-10.3) mg/dL Total Bilirubin 1.3 H (0.2-1.0) mg/dL AST 22 (10-42) IU/L ALT 21 (10-60) IU/L Alkaline Phosphatase 37 L (42-121) IU/L Total Protein 5.9 L (6.7-8.2) g/dL Albumin 3.1 L (3.2-5.5) g/dL Globulin 2.8 (2.1-4.2) g/dL Albumin/Globulin Ratio 1.1 (1.0-2.2) Blood Type Antibody Screen 11/27/17 11/26/17 11/26/17 Range/Units 00:52 20:02 10:55 WBC (4.8-10.8) x10^3/uL RBC (4.20-5.40) 10^6/uL Hgb (12.0-16.0) g/dL Hct (37.0-47.0) % MCV (81.0-99.0) fL MCH (27.0-31.0) pg MCHC (32.0-36.0) g/dL RDW (12.0-15.0) % Plt Count (130-450) 10^3/uL MPV (7.9-10.8) fL Neut # (Auto) (1.5-6.6) 10^3/uL Lymph # (Auto) (1.5-3.5) 10^3/uL Vigo # (Auto) (0.0-1.0) 10^3/uL Eos # (Auto) (0.0-0.7) 10^3/uL Baso # (Auto) (0.0-0.1) 10^3/uL Absolute Nucleated RBC x10^3/uL Nucleated RBC % /100WBC Sodium (135-145) mmol/L Potassium (3.5-5.0) mmol/L Chloride (101-111) mmol/L Carbon Dioxide (21-32) mmol/L Anion Gap (6-13) BUN (6-20) mg/dL Creatinine (0.4-1.0) mg/dL Estimated GFR (MDRD) (>89) Glucose (70-100) mg/dL POC Whole Bld Glucose 147 H 146 H (70 - 100) mg/dL Calcium (8.5-10.3) mg/dL Total Bilirubin (0.2-1.0) mg/dL AST (10-42) IU/L ALT (10-60) IU/L Alkaline Phosphatase (42-121) IU/L Total Protein (6.7-8.2) g/dL Albumin (3.2-5.5) g/dL Globulin (2.1-4.2) g/dL Albumin/Globulin Ratio (1.0-2.2) Blood Type A POSITIVE Antibody Screen NEGATIVE - Current Medications Current Medications: Current Medications Generic Name Dose Route Start Last Admin Trade Name Freq PRN Reason Stop Dose Admin Lactated Ringer's 1,000 mls @ 50 mls/hr 11/26/17 16:00 11/27/17 06:49 Lr IV 50 mls/hr .Q20H CHET Infusion Pantoprazole Sodium 40 mg 11/26/17 17:15 11/27/17 06:37 Protonix IVP 40 mg QDAC CHET Administration Sodium Chloride 10 ml 11/26/17 17:00 11/27/17 05:40 Normal Saline Flush 0.9% IVP Not Given 0100,0900,1700 CHET Sodium Chloride 10 ml 11/26/17 15:16 11/27/17 06:37 Normal Saline Flush 0.9% IVP 10 ml PRN PRN Administration NEEDED PER PROVIDER ORDERS - Physical Exam Wound/Incisions: positive: Dressing dry and intact General Appearance: positive: No acute distress Eyes Bilateral: positive: No lid inflammation, Conjunctivae nml, No scleral icterus ENT: positive: No signs of dehydration Neck: positive: Trachea midline Respiratory: positive: Chest non-tender, No respiratory distress, Breath sounds nml Cardiovascular: positive: Regular rate & rhythm Abdomen: positive: Non-tender, Abnml bowel sounds (Slightly decreased.) Skin: positive: Color nml Extremities: positive: Nml appearance Neurologic/Psychiatric: positive: Oriented x3 Impression/Plan - Problem List Problem List: D1 s/p sigmoidectomy, rigid proctoscopy, colonoscopy 1) FEN Doing well. On ERAS protocol. 2) Pathology Pending. 3) DVT Prophylaxis ongoing. 4) Torres Can remove but if patient cannot feel her bladder will need to go back in. I would recommend evaluating her sensation first prior to D/C. Awaiting bowel function to feed.
[2017-11-27] MEDS: LACTATED RINGERS 1,000 ML IV SCH (09:01)
[2017-11-28] MEDS: SODIUM CHLORIDE FLUSH 0.9% 10 ML SYRINGE IVP SCH ×3 (03:40→15:38)
[2017-11-28] MEDS: LACTATED RINGERS 1,000 ML IV SCH ×2 (03:43→19:30)
[2017-11-28] MEDS: PANTOPRAZOLE 40 MG VIAL IVP SCH (06:38)
--- NOTE | 2017-11-28 16:35 | ANESTHESIA POST OP EVALUATION ---
Anesthesia Post Eval - Post Anesthesia Eval CV Function Including HR & BP: positive: Stable Pain Control: positive: Adequate Nausea & Vomiting: positive: Negative Mental Status: positive: Appropriate Anesthesia Complications: positive: None (Epidural discontinues at the request of Dr. Lechuga. Patient doing well, no pain. Epidural removed with tip intact, no drainage, reddness or pain at site.)
--- NOTE | 2017-11-28 18:10 | PROVIDER PROGRESS NOTE ---
Subjective - General Admit Date: 11/26/17 Procedure Date: 11/26/17 Post Op Days: 2 Procedure Performed: Sigmoidectomy with colocolostomy, rigid proctoscopy, colonoscopy - Review of Systems Wound/Incisions: positive: Dressing dry and intact General: positive: No symptoms (Wants Advil instead of opiate. No BM - farting okay.) HEENT: positive: No symptoms Pulmonary: positive: No symptoms Cardiovascular: positive: No symptoms Gastrointestinal: positive: No symptoms Genitourinary: positive: No symptoms Musculoskeletal: positive: No symptoms Skin: positive: No symptoms Psychiatric: positive: No symptoms Objective - Patient Data Reviewed Vital Signs: Yes Vital Signs: Vital Signs x48h Temp Pulse Resp BP Pulse Ox 11/28/17 15:50 37.1 C 64 20 112/53 L 96 11/28/17 12:50 36.5 C 72 20 116/50 L 100 11/28/17 11:00 37.4 C 67 18 107/46 L 97 Weight: Weight 11/26/17 11/27/17 11/28/17 23:59 23:59 23:59 Weight (kg) 59.6 kg Intake & Output: Intake and Output Totals x24h 11/26/17 11/27/17 11/28/17 23:59 23:59 23:59 Intake Total 2770 2943.333 3045 Output Total 950 4550 2100 Balance 1820 -1606.667 945 - Lab Results Lab Results: 11/27/17 05:45 11/27/17 05:45 - Current Medications Current Medications: Current Medications Generic Name Dose Route Start Last Admin Trade Name Freq PRN Reason Stop Dose Admin Diphenhydramine HCl 12.5 - 25 mg 11/26/17 20:24 11/28/17 03:47 Benadryl Inj IVP 12.5 mg Q6HR PRN Administration ITCHING Lactated Ringer's 1,000 mls @ 50 mls/hr 11/26/17 16:00 11/28/17 03:43 Lr IV 50 mls/hr .Q20H CHET Administration Pantoprazole Sodium 40 mg 11/26/17 17:15 11/28/17 06:38 Protonix IVP 40 mg QDAC CHET Administration Sodium Chloride 10 ml 11/26/17 17:00 11/28/17 15:38 Normal Saline Flush 0.9% IVP Not Given 0100,0900,1700 CHET Sodium Chloride 10 ml 11/26/17 15:16 11/27/17 06:37 Normal Saline Flush 0.9% IVP 10 ml PRN PRN Administration NEEDED PER PROVIDER ORDERS - Physical Exam Wound/Incisions: positive: Dressing dry and intact General Appearance: positive: No acute distress Eyes Bilateral: positive: No lid inflammation, Conjunctivae nml, No scleral icterus Neck: positive: Trachea midline Respiratory: positive: Chest non-tender, No respiratory distress, Breath sounds nml Cardiovascular: positive: Regular rate & rhythm Abdomen: positive: Nml bowel sounds, No distention Skin: positive: Color nml Extremities: positive: Non-tender Neurologic/Psychiatric: positive: Oriented x3 Impression/Plan - Problem List Problem List: D2 s/p sigmoidectomy, rigid proctoscopy, colonoscopy 1) FEN Doing well. On ERAS protocol. Advance to general diet. 2) Pathology Diverticulitis. 3) DVT Prophylaxis ongoing. 4) Torres Out 5) Pain Epidural out patient doing well. Advil ordered.
[2017-11-28] MEDS ORDERED: HYDROmorphone 0.5 MG/0.5 ML SYRINGE IVP PRN (18:14)
[2017-11-28] MEDS: IBUPROFEN 600 MG TABLET PO SCH (19:30)
[2017-11-28] MEDS: SODIUM CHLORIDE FLUSH 0.9% 10 ML SYRINGE IVP PRN (20:13)
[2017-11-29] MEDS: IBUPROFEN 600 MG TABLET PO SCH ×2 (00:23→06:02)
[2017-11-29] MEDS: SODIUM CHLORIDE FLUSH 0.9% 10 ML SYRINGE IVP SCH ×2 (01:30→09:30)
[2017-11-29 05:54] LABS: HGB - HEMOGLOBIN 11.3 g/dL (12.0-16.0); MEAN CORPUSCULAR HEMOGLOBIN 30.2 pg (27.0-31.0); MEAN CORPUSCULAR HGB CONC 33.8 g/dL (32.0-36.0); MEAN CORPUSCULAR VOLUME 89.4 fL (81.0-99.0); MEAN PLATELET VOLUME 7.3 fL (7.9-10.8); RED BLOOD COUNT 3.75 10^6/uL (4.20-5.40); RED CELL DISTRIBUTION WIDTH 14.1 % (12.0-15.0); WHITE BLOOD COUNT 12.4 x10^3/uL (4.8-10.8)
[2017-11-29 05:58] LABS: BILIRUBIN,TOTAL 0.9 mg/dL (0.2-1.0); CALCIUM 8.4 mg/dL (8.5-10.3); CREATININE 0.6 mg/dL (0.4-1.0); TOTAL PROTEIN 5.9 g/dL (6.7-8.2)
[2017-11-29] MEDS: PANTOPRAZOLE 40 MG VIAL IVP SCH (06:02)
[2017-11-29 07:33] VITALS: BP 135/58
--- NOTE | 2017-11-29 11:11 | DISCHARGE SUMMARY ---
"Discharge Summary Admit Date: 11/26/17 Discharge Date: 11/29/17 Discharging Provider: Shamir Lechuga MD Primary Care Provider: Adryan Lemon MD Code Status: Attempt Resuscitation Condition at Discharge: Good Discharge Disposition: 01 Home, Self Care - DIAGNOSES Admission Diagnoses: Recurrent diverticulitis Discharge Diagnoses with Status of Each Condition: Resolved. - HPI History of Present Illness: 77 year old essentially healthy female with recurrent diverticulitis requiring antibiotic therapy and with persistent LLQ pain who presented for elective sigmoidectomy to prevent the possibility of free perforation AND resolve her LLQ pain - CONSULTS | PROCEDURES Consultations: None. Procedures: On November 26, 2017 I performed a sigmoidectomy with rigid proctoscopy x2 and colonoscopy. - HOSPITAL COURSE Hospital Course: Uncomplicated and the patient is being discharged at less than 72 hours following her surgery. - ALLERGIES Allergies/Adverse Reactions: Allergies Allergy/AdvReac Type Severity Reaction Status Date / Time Penicillins Allergy Rash Verified 11/21/17 11:20 acyclovir AdvReac Nausea Verified 11/21/17 11:20 ciprofloxacin [From Cipro] AdvReac Nausea Verified 11/21/17 11:20 codeine [Codeine] AdvReac Emesis Verified 11/21/17 11:20 hydrocodone AdvReac Emesis Verified 11/21/17 11:20 - MEDICATIONS Home Medications: Ambulatory Orders Medication Instructions Recorded Confirmed Aspirin [Aspir 81] 81 mg PO DAILY 10/28/12 11/26/17 Calcium Carbonate/Vitamin D3 2 each PO DAILY 10/28/12 11/26/17 [Calcium + Vitamin D Tablet] Raloxifene [Evista] 60 mg PO DAILY 10/28/12 11/26/17 Ferrous Sulfate [Slow Fe] 1 tab PO UD 11/08/16 11/26/17 Fluticasone [Flonase] 2 sprays JEOVANY DAILY PRN 11/21/17 11/26/17 Red Yeast Rice 600 mg PO DAILY 11/21/17 11/21/17 - PHYSICAL EXAM AT DISCHARGE General Appearance: positive: No acute distress Eyes Bilateral: positive: No lid inflammation, Conjunctivae nml, No scleral icterus ENT: positive: No signs of dehydration Neck: positive: Trachea midline Respiratory: positive: Chest non-tender, No respiratory distress, Breath sounds nml Cardiovascular: positive: Regular rate & rhythm Abdomen: positive: Nml bowel sounds, No distention, Tenderness (Minimal incisional.), Other (Wound is clean, dry and approximated with taj without erythema or drainage. No ecchymosis.) Skin: positive: Color nml Extremities: positive: Non-tender, Nml appearance Neurologic/Psychiatric: positive: Oriented x3 - LABS Result Diagrams: 11/29/17 05:30 11/29/17 05:30 Other Lab Results: The pathology report showing diverticulosis with acute diverticulitis was reviewed with the patient and her . No malignancy. - FOLLOW UP Follow Up: With me (Dr. Lechuga) on 12-05-17 for staple removal and postoperative check. - TIME SPENT Time Spent in Discharge (Minutes): 45"
--- NOTE | 2017-11-29 11:22 | Discharge Plan ---
Discharge Plan Disposition: 01 Home, Self Care Condition: Good Prescriptions: Docusate Sodium 250Mg Capsule [Colace 250Mg Capsule] 250 mg PO DAILY #10 capsule oxyCODONE/ACET 5/325 [Percocet 5 mg/325 mg] 1 each PO Q4-6H #10 tablet Diet: Regular Activity Restrictions: No lifting >15 pounds. Shower Restrictions: No Driving Restrictions: Yes (Until seen by me in office.) Weight Bearing: Full Weight Additional Instructions or Follow Up instructions: Okay to walk, climb stairs, run, shower, hot tub, swim, have sex, eat a general diet, travel. No lifting >15 pounds for 6 weeks after which activity is UNrestricted. No Smoking: If you smoke, Please STOP! Call for help. Follow-up with: Chris Lemon MD [Primary Care Provider] - Shamir Lechuga MD [Provider Admit Priv/Credential] -
--- NOTE | 2017-12-03 01:48 | PROCEDURE REPORT ---
DATE OF SERVICE: 11/26/2017 Physician: Tolu Pastrana MD PROCEDURE PERFORMED: Intraoperative colonoscopy. INDICATIONS: To assess integrity of post-sigmoid colectomy surgical anastomosis. FINDINGS: Colonoscopy was carried out to the mid descending colon. Bowel preparation was excellent. The surgical anastomosis was seen to be circumferentially intact, patent without evidence of bleedi ng or defect. No other mucosal abnormalities were appreciated in the visualized portions of the colo n. TECHNIQUE: During the course of the sigmoid colectomy performed by Dr. Lechuga and under general an esthesia performed by Bill Barrientos CRNA, following completion of the surgical anastomosis, includin g firing of the circular stapling device and reinforcing the staple line circumferentially, the Penta x flexible video colonoscope was inserted transanally into the rectum and advanced proximally up to a nd through the surgical anastomosis into the region of the mid descending colon with findings as note d above. The endoscope was carefully withdrawn and findings confirmed. The endoscope was then remov ed and this procedure terminated without apparent complications. TD: 12/02/2017 13:23
== END 2017-11-29 11:50 | disposition home or self-care (01) | DRG 331 ==
LOC: MS3 09:55 → MS2 11:36
PROVIDERS: ADMIT Surgery; ATTEND Surgery
PROC: 0DBN0ZZ Excision of Sigmoid Colon, Open Approach (ICD-10-PCS; principal; 2017-11-26 11:15)
PROC: 0DJD8ZZ Inspection of Lower Intestinal Tract, Via Natural or Artificial Opening Endoscopic (ICD-10-PCS; 2017-11-26 11:15)
DX: K57.32 Diverticulitis of large intestine without perforation or abscess without bleeding (principal); K21.9 Gastro-esophageal reflux disease without esophagitis; M81.0 Age-related osteoporosis without current pathological fracture; Z79.82 Long term (current) use of aspirin; Z79.899 Other long term (current) drug therapy; Z88.0 Allergy status to penicillin
CPT/HCPCS: 36415; 80053; 85025; 85027; 86850; 86900; 86901; 88307

== ENCOUNTER 2018-05-05 08:00 | Outpatient (CLI) | payer MEDICARE ==
[2018-05-05 18:57] LABS: BASOPHILS # (AUTO) 0.1 10^3/uL (0.0-0.1); BASOPHILS % (AUTO) 1.1 %; EOSINOPHILS # (AUTO) 0.3 10^3/uL (0.0-0.7); EOSINOPHILS % (AUTO) 2.7 %; HGB - HEMOGLOBIN 13.8 g/dL (12.0-16.0); LYMPHOCYTES # (AUTO) 2.5 10^3/uL (1.5-3.5); LYMPHOCYTES % (AUTO) 24.3 %; MEAN CORPUSCULAR HEMOGLOBIN 30.5 pg (27.0-31.0); MEAN CORPUSCULAR HGB CONC 33.4 g/dL (32.0-36.0); MEAN CORPUSCULAR VOLUME 91.4 fL (81.0-99.0); MEAN PLATELET VOLUME 8.1 fL (7.9-10.8); MONOCYTES # (AUTO) 0.6 10^3/uL (0.0-1.0); MONOCYTES % (AUTO) 5.5 %; NEUTROPHILS # (AUTO) 6.7 10^3/uL (1.5-6.6); NEUTROPHILS % (AUTO) 66.4 %; PLT - PLATELET COUNT 360 10^3/uL (130-450); RED BLOOD COUNT 4.52 10^6/uL (4.20-5.40); RED CELL DISTRIBUTION WIDTH 14.8 % (12.0-15.0); WHITE BLOOD COUNT 10.1 x10^3/uL (4.8-10.8)
[2018-05-05 19:32] LABS: ALBUMIN 3.8 g/dL (3.2-5.5); ALBUMIN/GLOBULIN RATIO 1.1 (1.0-2.2); BILIRUBIN,TOTAL 0.8 mg/dL (0.2-1.0); CALCIUM 9.2 mg/dL (8.5-10.3); CREATININE 0.6 mg/dL (0.4-1.0); TOTAL PROTEIN 7.2 g/dL (6.7-8.2)
== END 2018-05-05 23:59 | disposition home or self-care (01) ==
LOC: LAB.WCP 08:00
PROVIDERS: ATTEND Family Medicine
DX: D50.9 Iron deficiency anemia, unspecified (principal)
CPT/HCPCS: 36415; 80053; 82728; 83540; 84466; 85025

== ENCOUNTER 2018-05-08 09:21 | Outpatient (CLI) | payer MEDICARE ==
--- NOTE | 2018-05-09 08:04 | DEXA Report ---
Reason: BONE DISORDER Procedure Date: 05/08/2018 Accession Number: [id number] / [id number] Procedure: DEX - Dexa Spine and/or Hip CPT Code: FULL RESULT: EXAM: Dexa Spine and/or Hip DATE: 05/08/2018 9:49 AM CLINICAL HISTORY: BONE DISORDER TECHNIQUE: Dual energy x-ray absorptiometry (DXA) was performed on a CureDM System. Regions measured are the AP Spine, femoral neck, and if needed forearm. COMPARISON: 09/27/2015. In accordance with the International Society for Clinical Densitometry (ISCD) guidelines, data from previous exams may be reanalyzed using current recommendations and techniques. This is done to allow a more accurate basis for comparison with the current study. FINDINGS: The data for the lumbar spine is as follows: BMD (g/cm/cm) T-SCORE Z-SCORE REGION L1 0.888 -2.0 -0.1 L2 0.984 -1.8 0.1 L3 1.001 -1.7 0.2 L4 0.961 -2.0 -0.1 TOTAL 0.960 -1.8 0.0 NOTE: All evaluable vertebrae are used for classification The data for the hip is as follows: BMD (g/cm/cm) T-SCORE Z-SCORE REGION Neck 0.875 -1.2 0.9 TOTAL 0.807 -1.6 0.4 NOTE: The femoral neck or total proximal femur, whichever is lowest, is used for classification. IMPRESSION: THE WHO CLASSIFICATION BASED ON THE INTERNATIONAL REFERENCE STANDARD IS OSTEOPENIA. THE FRACTURE RISK IS INCREASED. RECOMMENDATION: Patients with diagnosis of osteoporosis or osteopenia should have regular bone mineral density assessment. For those eligible for Medicare, routine testing is allowed once every 2 years. Testing frequency can be increased for patients who have rapidly progressing disease or for those who are receiving medical therapy to restore bone mass. COMMENT: World Health Organization (WHO) definitions for osteoporosis and osteopenia: NORMAL BMD: T-score at -1.0 or higher, fracture risk is low OSTEOPENIA BMD: T-score between -1.0 and -2.5, fracture risk is increased. OSTEOPOROSIS BMD: T-score at -2.5 or lower, fracture risk is high. National Osteoporosis Foundation recommends: 1. Obtain adequate dietary calcium (at least 1200 mg per day) and vitamin D (400-800 international units per day). 2. Participate, as appropriate, in regular weightbearing and muscle-strengthening exercise. 3. Avoid tobacco use and reduce alcohol and caffeine intake. 4. For more detailed information see the website at www.NOF.org.
== END 2018-05-08 09:22 | disposition home or self-care (01) ==
LOC: DI 09:21
PROVIDERS: ATTEND Family Medicine
DX: M85.89 Other specified disorders of bone density and structure, multiple sites (principal)
CPT/HCPCS: 77080

== ENCOUNTER 2018-08-01 08:00 | Outpatient (CLI) | payer MEDICARE ==
[2018-08-01 12:35] LABS: BASOPHILS # (AUTO) 0.1 10^3/uL (0.0-0.1); EOSINOPHILS # (AUTO) 0.4 10^3/uL (0.0-0.7); EOSINOPHILS % (AUTO) 4.9 %; HGB - HEMOGLOBIN 13.8 g/dL (12.0-16.0); LYMPHOCYTES # (AUTO) 2.3 10^3/uL (1.5-3.5); LYMPHOCYTES % (AUTO) 25.4 %; MEAN CORPUSCULAR HEMOGLOBIN 29.4 pg (27.0-31.0); MEAN CORPUSCULAR HGB CONC 32.5 g/dL (32.0-36.0); MEAN CORPUSCULAR VOLUME 90.4 fL (81.0-99.0); MEAN PLATELET VOLUME 7.7 fL (7.9-10.8); MONOCYTES # (AUTO) 0.8 10^3/uL (0.0-1.0); MONOCYTES % (AUTO) 8.3 %; NEUTROPHILS # (AUTO) 5.6 10^3/uL (1.5-6.6); NEUTROPHILS % (AUTO) 60.4 %; PLT - PLATELET COUNT 367 10^3/uL (130-450); RED BLOOD COUNT 4.68 10^6/uL (4.20-5.40); RED CELL DISTRIBUTION WIDTH 14.2 % (12.0-15.0); WHITE BLOOD COUNT 9.2 x10^3/uL (4.8-10.8)
== END 2018-08-01 08:01 | disposition home or self-care (01) ==
LOC: LAB.WCP 08:00
PROVIDERS: ATTEND Family Medicine
DX: D50.9 Iron deficiency anemia, unspecified (principal)
CPT/HCPCS: 36415; 85025

== ENCOUNTER 2018-08-29 14:25 | Outpatient (CLI) | payer MEDICARE ==
[2018-08-29 18:37] LABS: PT - PROTHROMBIN TIME 11.1 secs (9.9-12.6)
[2018-08-29 18:50] LABS: PARTIAL THROMBOPLASTIN TIME 30.2 secs (24.9-33.3)
== END 2018-08-29 23:59 | disposition home or self-care (01) ==
LOC: LAB.WCP 14:25
PROVIDERS: ATTEND Family Medicine
DX: S40.029A Contusion of unspecified upper arm, initial encounter (principal)
CPT/HCPCS: 36415; 85610; 85730

== ENCOUNTER 2018-09-10 09:18 | Outpatient (CLI) | payer MEDICARE | END 2018-09-10 09:19 | disposition home or self-care (01) | LOC: DI.N 09:18 | DX: Z53.9 Procedure and treatment not carried out, unspecified reason (principal) ==

== ENCOUNTER 2018-10-10 08:43 | Outpatient (CLI) | payer MEDICARE ==
--- NOTE | 2018-10-10 11:45 | Mammography Report ---
Reason: LT BREAST LUMP Procedure Date: 10/10/2018 Accession Number: [id number] / [id number] Procedure: [facility] - Diagnostic Dig Bilat CPT Code: FULL RESULT: EXAM: Diagnostic Dig Bilat DATE: 10/10/2018 9:51 AM CLINICAL HISTORY: Diagnostic examination. Palpable lump. TECHNIQUE: (B) - Bilateral CC and MLO views were obtained. Left spot CC, left spot MLO and left ML images are obtained. COMPARISON: 07/19/2017 through 03/29/2014. PARENCHYMAL PATTERN: (A) - The breast(s) demonstrate(s) scattered fibroglandular densities. FINDINGS: In the left breast corresponding to the possibility marker approximately 4.5 cm from the nipple in the upper outer central breast is a focal asymmetry with increasing prominence and increasing architectural distortion which measures approximately 0.5 x 0.6 cm and is best seen on the 3-D left MLO projection image 25 and 3-D left CC projection image 25. The finding is further characterized by focused left breast ultrasound which demonstrates a corresponding nodule in the left breast at the 1:00 position 4 cm from the nipple which is immediately against the chest wall musculature, somewhat poorly marginated, and demonstrates shadowing and nearby distortion of surrounding parenchyma. The finding warrants biopsy. Due to the location of the suspicious finding and technical factors, biopsy is likely better achieved with stereotactic approach, possibly with tomographic guidance. There are no suspicious masses, calcifications, or areas of distortion in the right breast. IMPRESSION: Suspicious findings. BI-RADS category 4. RECOMMENDATION: (BIOPSY) - left breast stereotactic approach possibly with tomography. BI-RADS CATEGORY: (4) - Suspicious. STANDARD QUALIFYING STATEMENTS: 1. This examination was not reviewed with the aid of Computer-Aided Detection (CAD). 2. A negative or benign imaging report should not preclude biopsy if clinically suspicious findings are present. 3. Dense breasts may obscure an underlying neoplasm. 4. This examination was reviewed with the aid of 3D breast imaging (tomosynthesis).
== END 2018-10-10 08:44 | disposition home or self-care (01) ==
LOC: DI 08:43
PROVIDERS: ATTEND Family Medicine
DX: N63.20 Unspecified lump in the left breast, unspecified quadrant (principal)
CPT/HCPCS: 76642; 77066; G0279; 77062

== ENCOUNTER 2018-10-21 10:09 | Outpatient (CLI) | payer MEDICARE ==
[~2018-10-21 10:09] MED LIST: BUFFERED LIDOCAINE 10 ML SYRINGE ONE; BUPIVACAINE 0.5%-EPI 1:200000 PF 10 ML VIAL ONE; SINCALIDE 5 MCG VIAL ONE
--- NOTE | 2018-10-21 13:04 | Mammography Report ---
Reason: ABN MAMMO - LT BREAST LUMP Procedure Date: 10/21/2018 Accession Number: [id number] / [id number] Procedure: [facility]ER[facility] - Stereotactic Core BX LT CPT Code: 02279 FULL RESULT: EXAM: Stereotactic Core BX LT DATE: 10/21/2018 12:00 PM CLINICAL HISTORY: ABN MAMMO - LT BREAST LUMP COMPARISON: 10/10/2018. CLINICAL DATA: Target nodule measuring 0.6 cm in the 1 o'clock axis of the left breast. Informed consent was obtained. The patient was positioned in the mammography machine with biopsy attachment. Targeting imaging was obtained and the lesion was selected. The breast was approached from the lateral aspect. Using standard aseptic technique, 1% buffered lidocaine was injected into the breasts for local anesthesia. A small shavonne was made in the skin with a #11 blade. A 9-gauge vacuum-assisted device was advanced into the breasts towards the target and confirmatory imaging was obtained to verify targeting and 12 specimens were obtained. Specimen radiography was performed which demonstrated the presence of calcifications in the sample. A biopsy marker clip was then placed into the biopsy cavity. The biopsy device was subsequently removed from the breast. Hemostasis was achieved. Follow-up 3-D mammography was then performed to verify biopsy targeting and clip placement. The mammography showed concordant clip placement and expected postbiopsy changes . The wound was dressed and ice applied. The patient was observed for approximately 15 minutes, then discharged from the diagnostic imaging Department in stable condition following instructions on wound care and obtaining biopsy results. The tissue was sent for histologic analysis. IMPRESSION: Left breast biopsy. RADIA
[2018-10-21] MEDS ORDERED: BUFFERED LIDOCAINE 10 ML SYRINGE IU ONE (15:32)
== END 2018-10-21 10:10 | disposition home or self-care (01) ==
LOC: DI 10:09
PROVIDERS: ATTEND Family Medicine
DX: R92.8 Other abnormal and inconclusive findings on diagnostic imaging of breast (principal)
CPT/HCPCS: 19081

== ENCOUNTER 2018-11-12 08:32 | Outpatient (CLI) | payer MEDICARE ==
[2018-11-12] MEDS ORDERED: GADOBUTROL 7.5 MMOL/7.5 ML VIAL ONE (09:23)
[2018-11-12] MEDS ORDERED: GADOBUTROL 7.5 MMOL/7.5 ML VIAL IVP ONE (09:55)
--- NOTE | 2018-11-12 15:20 | MRI Report ---
Reason: ADENOCARCINOMA, LEFT BREAST, ER POSITIVE Procedure Date: 11/12/2018 Accession Number: [id number] / [id number] Procedure: MRI - Breast W/WO Cont CPT Code: 50684 FULL RESULT: EXAM: Breast W/WO Cont DATE: 11/12/2018 10:34 AM CLINICAL HISTORY: ADENOCARCINOMA, LEFT BREAST, ER POSITIVE COMPARISON: None. TECHNIQUE: Noncontrast liver, noncontrast T1, dynamic isotropic contrast-enhanced T1 and diffusion-weighted images are obtained. CONTRAST USED: 6 mL Gadavist (gadolinium). POSTPROCESSING: Subtraction dynamic/curve analysis and multiplanar reformations with CAD stream FINDINGS: Right breast: No suspicious mass or nonmass enhancement is identified. There is no suspicious right-sided lymphadenopathy. Scattered fibroglandular tissues. Left breast: Scattered fibroglandular tissues. Seen in the 1:00 position approximately 4 cm from the nipple is a hyperenhancing mass corresponding to the biopsy proven malignancy, containing the biopsy marker. Maximum dimensions are up to 3.5 cm in craniocaudal extent, 0.9 cm in anterior posterior extent and up to 1.4 cm in transverse dimension. No skin involvement or chest wall musculature involvement is demonstrated. A few left axillary lymph nodes at level 1 and 2 do not clearly demonstrate a fatty hilum and measure up to 0.7 cm in short axis, asymmetrically prominent as compared to the right. No internal mammary lymphadenopathy is detected. IMPRESSION: Biopsy-proven left breast malignancy measuring up to 3.5 cm in craniocaudal dimension as described above. No evidence of chest wall or skin involvement. Asymmetrically prominent left axillary lymph nodes without definite preservation of architecture. If helpful for surgical planning, ultrasound guided axillary lymph node biopsy of the sonographically most suspicious node could be attempted. COMMENT: The literature indicates that a negative dynamic breast MRI has a high sensitivity and specificity for the detection of invasive carcinoma (to a threshold of 5 mm). MRI is not reliably sensitive for detecting ductal carcinoma in situ or large invasive neoplasms with only minimal enhancement (i.e. mucinous carcinoma). Normal-appearing lymph nodes on MRI may contain microscopic tumor. Appropriate clinical mammographic and sonographic followup should be performed if recommended. Negative MRI should not dissuade further evaluation of any suspicious mammographic calcifications and/or worrisome palpable masses.
== END 2018-11-12 08:33 | disposition home or self-care (01) ==
LOC: DI 08:32
PROVIDERS: ATTEND Surgery
DX: Z01.818 Encounter for other preprocedural examination (principal); C50.912 Malignant neoplasm of unspecified site of left female breast; Z17.0 Estrogen receptor positive status [ER+]
CPT/HCPCS: 77049; 93005; A9585

== ENCOUNTER 2018-11-18 08:05 | Day surgery (SDC) | payer MEDICARE ==
[2018-11-18] MEDS ORDERED: DEXAMETHASONE 4 MG/ML VIAL IVP ONE (08:06)
[2018-11-18] MEDS ORDERED: LIDOCAINE-MPF 2% 5 ML VIAL IM ONE (08:06)
[2018-11-18] MEDS ORDERED: PROPOFOL 200 MG/20 ML VIAL IVP ONE (08:06)
[2018-11-18] MEDS ORDERED: ePHEDrine 50 MG/ML VIAL IVP ONE (08:06)
[2018-11-18] MEDS ORDERED: ONDANSETRON 4 MG/2 ML VIAL IVP ONE (08:06)
[2018-11-18] MEDS ORDERED: MIDAZOLAM 2 MG/2 ML VIAL IVP ONE (08:06)
[2018-11-18] MEDS ORDERED: fentaNYL 100 MCG/2 ML VIAL IVP ONE (08:06)
[2018-11-18] MEDS ORDERED: ACETAMINOPHEN 1,000 MG/100 ML 100 ML IV ONE (08:06)
[2018-11-18] MEDS ORDERED: KETOROLAC 30 MG/ML VIAL IVP ONE (08:06)
[2018-11-18] MEDS ORDERED: SODIUM CHLORIDE FLUSH 0.9% 10 ML SYRINGE ONE (08:09)
[2018-11-18] MEDS ORDERED: LACTATED RINGERS 1,000 ML IV ONE ×3 (08:40→12:55)
[2018-11-18] MEDS ORDERED: CEFAZOLIN SODIUM IN 0.9 % NACL 2 GM/100 ML BAG IV ONE (08:56)
--- NOTE | 2018-11-18 11:29 | ANESTHESIA ---
Pre-Anesthesia VS, & Labs - Diagnosis left breast cancer - Procedure left breast lumpectomy with sentinel node dissection Vital Signs: Temp Pulse Resp BP Pulse Ox 36.5 C 68 18 119/60 100 11/18/18 08:24 11/18/18 08:24 11/18/18 08:24 11/18/18 08:24 11/18/18 08:24 Height 5 ft 5 in Weight (kg) 63 kg Body Mass Index 21.8 - NPO >8 hours - Is Patient ?: No Home Medications and Allergies Home Medications: Ambulatory Orders Diclofenac Sodium [Voltaren] 2 - 4 gm TOP QID PRN 11/12/18 Metronidazole [Metrocream] 1 applic TOP BID PRN 11/12/18 Calcium Carbonate/Vitamin D3 [Calcium 600-Vit D3 200 Tablet] 2 each PO DAILY 10/28/12 Fluticasone [Flonase] 2 sprays JEOVANY DAILY PRN 11/21/17 Red Yeast Rice 600 mg PO DAILY 11/21/17 Diclofenac Sodium [Voltaren] 2 - 4 gm TOP QID PRN 11/12/18 Metronidazole [Metrocream] 1 applic TOP BID PRN 11/12/18 Allergies/Adverse Reactions: Allergies Allergy/AdvReac Type Severity Reaction Status Date / Time Penicillins Allergy Rash Verified 11/21/17 11:20 acyclovir AdvReac Nausea Verified 11/21/17 11:20 ciprofloxacin [From Cipro] AdvReac Nausea Verified 11/21/17 11:20 codeine [Codeine] AdvReac Emesis Verified 11/21/17 11:20 hydrocodone AdvReac Emesis Verified 11/21/17 11:20 Anes History & Medical History - Anesthetic History Anesthesia Complications: reports: No previous complications - Medical History Cardiovascular: reports: Murmur Pulmonary: reports: Pneumonia Gastrointestinal: reports: GERD, Diverticulitis Urinary: reports: None Neuro: reports: Head injury Musculoskeletal: reports: Osteoarthritis, Osteoporosis Endocrine/Autoimmune: reports: None Blood Disorders: reports: None Skin: reports: Rosacea Smoking Status: Never smoker - Surgical History General: Appendectomy, Bowel surgery, Colonoscopy Eyes Ears Nose Throat (EENT): Cataracts Gynecologic: Tubal ligation Orthopedic: ACL reconstruction Exam Dental: WNL Mouth Opening: Greater than 4 Fingerbreadths Mallampati classification: II Thyromental Distance: greater than 6 cm Respiratory: Lungs clear Cardiovascular: Regular rate, Normal S1, Normal S2, Other (2/6 systolic murmur) Mental/Cognitive Status: Alert/Oriented X3 Plan Anesthesia Type: General, Other Block (pec block) Consent for Procedure(s) Verified and Reviewed: Yes Code Status: Attempt Resuscitation ASA classification: 2-Mild systemic disease Is this case an emergency?: No
[2018-11-18] MEDS: LIDOCAINE 1%-EPI 1:100000 20 ML MDV ONE ×2 (12:52→12:54)
[2018-11-18] MEDS: BUPIVACAINE 0.5% PF 10 ML VIAL ONE ×2 (12:52→12:53)
[2018-11-18] MEDS ORDERED: METHYLENE BLUE 0.5% 50 MG/10 ML AMPULE ONE (12:57)
[2018-11-18] MEDS ORDERED: ONDANSETRON ODT 4 MG TABLET ONE (15:09)
[2018-11-18] MEDS ORDERED: oxyCODONE 5 MG TABLET ONE (15:10)
[2018-11-18 15:31] VITALS: BP 115/59
== END 2018-11-18 08:06 | disposition home or self-care (01) ==
LOC: DI 08:05
PROVIDERS: ATTEND Surgery
PROC: 0HBU0ZZ Excision of Left Breast, Open Approach (ICD-10-PCS; principal; 2018-11-18 11:45)
PROC: 07B60ZX Excision of Left Axillary Lymphatic, Open Approach, Diagnostic (ICD-10-PCS; 2018-11-18 11:45)
DX: C50.412 Malignant neoplasm of upper-outer quadrant of left female breast (principal); Z17.0 Estrogen receptor positive status [ER+]; R01.1 Cardiac murmur, unspecified; D50.9 Iron deficiency anemia, unspecified; K21.9 Gastro-esophageal reflux disease without esophagitis; M19.90 Unspecified osteoarthritis, unspecified site; M81.0 Age-related osteoporosis without current pathological fracture; Z87.01 Personal history of pneumonia (recurrent); Z79.82 Long term (current) use of aspirin
CPT/HCPCS: 19281; 19301; 38525; 38900; 76098; A9270; J0131; J0690; J1170; J7120; Q0162

== ENCOUNTER 2018-11-18 08:08 | Day surgery (SDC) | payer MEDICARE ==
[2018-11-18] MEDS ORDERED: BUFFERED LIDOCAINE 10 ML SYRINGE ONE (09:31)
[2018-11-18] MEDS ORDERED: BUFFERED LIDOCAINE 10 ML SYRINGE IU ONE (10:56)
--- NOTE | 2018-11-18 13:44 | OPERATIVE REPORT ---
Operative Report - General Procedure Date: 11/18/18 Planned Procedure: Left breast lumpectomy and sentinel node biopsy Pre-Op Diagnosis: Biopsy proven left breast invasive malignancy Procedure Performed: Left breast lumpectomy and sentinel node biopsy Post Op Diagnosis: Same - Procedure Note Primary Surgeon: Diya Anesthesia Provider: Savanna Terry CRNA Anesthesia Technique: General LMA, Local, Regional block Pathology: 1. 1 level one axillary node to pathology in formalin 2. Left breast lumpectomy specimen oriented Estimated Blood Loss (mL): 15 Indications: Biopsy proven left breast invasive malignancy Findings: 1 sentinel node Lesion, clip and wire all contained within the specimen Complications: None apparent - Other Other Information/Narrative: After obtaining informed consent, the patient is brought to the operating room and placed in supine position on the operating table. Following successful induction of general endotracheal anesthesia, appropriate padding of all bony prominences, and placement of appropriate monitors, the left chest and axilla were prepped and draped in the standard surgical fashion. A timeout was held per SCOAP protocol. All elements of the preoperative safety checklist were followed before, during, and at the conclusion of the procedure. There was a technical problem involving the nuclear medicine equipment. Therefore this sentinel node procedure was done using methylene blue. 3 mL of undiluted but reconstituted methylene blue were injected in the subareolar region of the left breast. The breast was massaged for 5 minutes. At the end of 5 minutes on the timer, an incision was created in the left axilla following infiltration with local anesthetic. This was carried down through the skin and subcutaneous tissue to enter the axillary fat pad. We could see faint traces of blue in the inferior axillary lymphatics. We did identify a very faintly blue node in the level 1 region. This node was not abnormal in appearance nor was it palpably enlarged. All lymphatics and vasculature were addressed with hemoclips prior to division. The node was then liberated from surrounding structures and passed from the table as a specimen. The axilla was checked for hemostasis and irrigated with warm saline solution. We continued with the left breast lumpectomy. Due to the upper outer quadrant location of the mass, we were able to use the same incision that we had used for sentinel node biopsy. Dissection was carried out inferiorly to liberate the wire and underlying breast tissue from the skin of the lateral breast. We continued posteriorly to include the fascia of the pectoralis muscle and medially to the region posterior to the nipple areolar complex where the end of the wire terminated. The entire specimen was removed in a single piece. It measured approximately 5 cm x 3 cm x 5 cm. It was passed from the table and marked for orientationThe wound was then checked for hemostasis. Both areas were irrigated with warm water. A piece of Surgicel was placed over the pectoralis muscle anteriorly to help with hemostasis without having to use cautery creating muscle spasm.We received word that to the specimen container the wire the clip in the lesion. The wound was then checked once again for hemostasis and closed in layers with Vicryl Monocryl suture. Dermabond was applied to the skin. All sponge, needle, and instrument counts were correct at the conclusion of the case. The patient was allowed to awake from anesthesia without difficulty and taken to the postanesthesia care unit in good condition.
[2018-11-18] MEDS ORDERED: HYDROmorphone 0.5 MG/0.5 ML SYRINGE IVP PRN (13:51)
[2018-11-18] MEDS ORDERED: oxyCODONE 5 MG TABLET PO PRN (13:51)
[2018-11-18] MEDS ORDERED: ONDANSETRON 4 MG/2 ML VIAL IVP PRN (13:51)
--- NOTE | 2018-11-18 15:53 | Mammography Report ---
Reason: S/P LEFT BREAST LUMPECTOMY Procedure Date: 11/18/2018 Accession Number: [id number] / [id number] Procedure: [facility] - Breast Specimen Surgical CPT Code: FULL RESULT: EXAM: Wire Localization LT, Breast Specimen Surgical DATE: 11/18/2018 10:39 AM CLINICAL HISTORY: PRE OP FOR LEFT BREAST LUMPECTOMY COMPARISON: 10/21/2018 stereotactic core biopsy. TECHNIQUE: The risks, benefits, and alternatives of the procedure were discussed with the patient. All questions were answered. Written and verbal consent were obtained. Local anesthesia was performed with 1% lidocaine. A 7 cm modified Kopan's wire was placed from a lateral to medial approach. Postprocedure mammogram demonstrates the thickened portion of the wire lying immediately adjacent to the previously placed stereotactic biopsy clip. The patient tolerated the procedure well. A radiograph of the left breast biopsy specimen shows the biopsy clip and localization wire to be contained within the specimen. The specimen container grid shows the clip located at H5. IMPRESSION: Successful mammographically guided left breast wire localization.
--- NOTE | 2018-11-18 15:53 | Mammography Report ---
Reason: PRE OP FOR LEFT BREAST LUMPECTOMY Procedure Date: 11/18/2018 Accession Number: [id number] / [id number] Procedure: [facility] - Wire Localization LT CPT Code: 84200 FULL RESULT: EXAM: Wire Localization LT, Breast Specimen Surgical DATE: 11/18/2018 10:39 AM CLINICAL HISTORY: PRE OP FOR LEFT BREAST LUMPECTOMY COMPARISON: 10/21/2018 stereotactic core biopsy. TECHNIQUE: The risks, benefits, and alternatives of the procedure were discussed with the patient. All questions were answered. Written and verbal consent were obtained. Local anesthesia was performed with 1% lidocaine. A 7 cm modified Kopan's wire was placed from a lateral to medial approach. Postprocedure mammogram demonstrates the thickened portion of the wire lying immediately adjacent to the previously placed stereotactic biopsy clip. The patient tolerated the procedure well. A radiograph of the left breast biopsy specimen shows the biopsy clip and localization wire to be contained within the specimen. The specimen container grid shows the clip located at H5. IMPRESSION: Successful mammographically guided left breast wire localization.
== END 2018-11-18 08:09 | disposition home or self-care (01) ==
LOC: DI 08:08
PROVIDERS: ATTEND Surgery
DX: C50.912 Malignant neoplasm of unspecified site of left female breast (principal)
CPT/HCPCS: 76098

== ENCOUNTER 2018-12-23 09:05 | Day surgery (SDC) | payer MEDICARE ==
[~2018-12-23 09:05] MED LIST changes: -BUFFERED LIDOCAINE 10 ML SYRINGE ONE; +BUPIVACAINE 0.5% PF 10 ML VIAL ONE; -BUPIVACAINE 0.5%-EPI 1:200000 PF 10 ML VIAL ONE; -SINCALIDE 5 MCG VIAL ONE
[2018-12-23] MEDS ORDERED: LIDOCAINE MPF 1%-EPI 1:200000 30 ML VIAL ONE (09:14)
--- NOTE | 2018-12-23 09:50 | ANESTHESIA ---
Pre-Anesthesia VS, & Labs - Diagnosis left breast cancer - Procedure evacuation left breast hematoma Vital Signs: Temp Pulse Resp BP Pulse Ox 36.9 C 74 18 131/61 H 99 12/23/18 09:15 12/23/18 09:15 12/23/18 09:15 12/23/18 09:15 12/23/18 09:15 Height 5 ft 5 in Weight (kg) 64.3 kg Body Mass Index 23.6 - NPO Other (ate toast with jelly at 03:30) - Is Patient ?: No Home Medications and Allergies Home Medications: Ambulatory Orders Pseudoephedrine [Sudafed] 30 mg PO Q6H PRN 12/19/18 Calcium Carbonate/Vitamin D3 [Calcium 600-Vit D3 200 Tablet] 2 each PO DAILY 10/28/12 Red Yeast Rice 600 mg PO DAILY 11/21/17 Pseudoephedrine [Sudafed] 30 mg PO Q6H PRN 12/19/18 Allergies/Adverse Reactions: Allergies Allergy/AdvReac Type Severity Reaction Status Date / Time Penicillins Allergy Rash Verified 11/21/17 11:20 acyclovir AdvReac Nausea Verified 11/21/17 11:20 ciprofloxacin [From Cipro] AdvReac Nausea Verified 11/21/17 11:20 codeine [Codeine] AdvReac Emesis Verified 11/21/17 11:20 hydrocodone AdvReac Emesis Verified 11/21/17 11:20 Anes History & Medical History - Anesthetic History Anesthesia Complications: reports: No previous complications Family history of Anesthesia Complications: Denies Family history of Malignant Hyperthermia: Denies - Medical History Cardiovascular: reports: None, Murmur Pulmonary: reports: Pneumonia Gastrointestinal: reports: GERD, Diverticulitis Urinary: reports: None Neuro: reports: Head injury Musculoskeletal: reports: Osteoarthritis, Osteoporosis Endocrine/Autoimmune: reports: None Blood Disorders: reports: None Skin: reports: Rosacea Smoking Status: Never smoker - Surgical History General: Appendectomy, Bowel surgery, Colonoscopy Eyes Ears Nose Throat (EENT): Cataracts, Other Gynecologic: Tubal ligation, Other Orthopedic: ACL reconstruction Exam General: Alert Dental: WNL Mouth Opening: Greater than 4 Fingerbreadths Mallampati classification: I Respiratory: Lungs clear Cardiovascular: Regular rate Plan Anesthesia Type: MAC Consent for Procedure(s) Verified and Reviewed: Yes Code Status: Attempt Resuscitation ASA classification: 2-Mild systemic disease Is this case an emergency?: No
[2018-12-23] MEDS ORDERED: LACTATED RINGERS 1,000 ML IV ONE (10:08)
[2018-12-23] MEDS ORDERED: LIDOCAINE 1%-EPI 1:100000 30 ML MDV SUBQ ONE (10:23)
[2018-12-23] MEDS ORDERED: BUPIVACAINE 0.5% PF 30 ML VIAL INFIL ONE (10:23)
--- NOTE | 2018-12-23 10:37 | OPERATIVE REPORT ---
Operative Report - General Procedure Date: 12/23/18 Planned Procedure: Evacuation of left breast hematoma Pre-Op Diagnosis: Left breast hematoma Procedure Performed: Evacuation of left breast hematoma Post Op Diagnosis: Left breast hematoma - Procedure Note Primary Surgeon: Diya Anesthesia Provider: CLARICE Barrientos Pathology: None Estimated Blood Loss (mL): 150 (Contents of hematoma only) Indications: Painful hematoma Findings: 150 ml of hematoma Complications: None apparent - Other Other Information/Narrative: After obtaining informed consent, the patient is brought to the operating room and placed in the supine position on the operating table. Following successful induction of IV sedation, the left breast was prepped and draped in the standard surgical fashion. A timeout was held per CTOAP protocol. All elements of the surgical safety checklist were followed before, during, and after the procedure. Following infiltration with local anesthetic to create a field block, a portion of the existing incision was repeated and carried down through the subcutaneous tissue. The hematoma cavity was entered. A Yankauer sucker was placed in the cavity and the entire hematoma evacuated. The wound was then irrigated with warm saline solution and aspirated free of all fluid. The open portion of the incision was then closed in 2 layers with Vicryl Monocryl suture and Dermabond was applied. All sponge, needle, and instrument counts were correct at the conclusion of the case. Patient was allowed to wake from anesthesia without difficulty and taken to the postanesthesia care unit in good condition.
[2018-12-23] MEDS ORDERED: oxyCODONE 5 MG TABLET PO PRN (10:42)
[2018-12-23] MEDS ORDERED: ONDANSETRON 4 MG/2 ML VIAL IVP PRN (10:42)
[2018-12-23] MEDS ORDERED: HYDROmorphone 0.5 MG/0.5 ML SYRINGE IVP PRN (10:42)
[2018-12-23 11:02] VITALS: BP 120/63
== END 2018-12-23 09:06 | disposition home or self-care (01) ==
LOC: SDS 09:05
PROVIDERS: ATTEND Surgery
PROC: 0H9U0ZZ Drainage of Left Breast, Open Approach (ICD-10-PCS; principal; 2018-12-23 10:30)
DX: L76.32 Postprocedural hematoma of skin and subcutaneous tissue following other procedure (principal); Y83.8 Other surgical procedures as the cause of abnormal reaction of the patient, or of later complication, without mention of misadventure at the time of the procedure; C50.912 Malignant neoplasm of unspecified site of left female breast; Z17.0 Estrogen receptor positive status [ER+]
CPT/HCPCS: 21501; J7120

== ENCOUNTER 2019-09-23 16:28 | Outpatient (CLI) | payer MEDICARE ==
--- NOTE | 2019-09-24 09:27 | XRAY Report ---
PROCEDURE: Cervical Spine 2 View INDICATIONS: Cervical radiculopathy TECHNIQUE: 3 view(s) of the cervical spine were acquired. COMPARISON: None. FINDINGS: Bones: There is no fracture or dislocation. Straightening of the usual cervical lordosis likely due t o degenerative changes. Anterolisthesis of C3 on C4 measuring 2 mm. The spondylitic and spinal are sy mmetric changes at every level in the cervical spine most pronounced at C3-C4 and C5-C6. Soft tissues: No prevertebral soft tissue swelling. IMPRESSION: Multilevel multifactorial degenerative changes. Cervical spine MRI recommended. Reviewed by: Gil Cheatham MD on 09/24/2019 9:25 AM PDT Approved by: Gil Cheatham MD on 09/24/2019 9:25 AM PDT Station ID: [id number]
== END 2019-09-23 16:29 | disposition home or self-care (01) ==
LOC: DI 16:28
PROVIDERS: ATTEND Family Medicine
DX: M43.12 Spondylolisthesis, cervical region (principal); M47.812 Spondylosis without myelopathy or radiculopathy, cervical region
CPT/HCPCS: 72040

== ENCOUNTER 2019-10-08 13:37 | Outpatient (CLI) | payer MEDICARE ==
--- NOTE | 2019-10-09 10:22 | MRI Report ---
PROCEDURE: Cervical Spine W/O INDICATIONS: CERVICAL RADICULOPATHY TECHNIQUE: Noncontrast sagittal T1 spin echo and T2 fast spin echo, sagittal STIR, foraminal oblique sagittal T2 fast spin echo, and axial gradient echo or T2 fast spin echo through the cervical spine. COMPARISON: None. FINDINGS: Image quality: Excellent. Alignment and Curvature: There is trace C3-C4, C4-C5 and C7-T1 anterolisthesis. Bone Marrow: Mild reactive endplate changes noted adjacent to the C3-C4, C5-C6 and C6-C7 discs. Spinal Cord: Visualized spinal cord has normal size and signal. No cerebellar tonsillar herniation. Paraspinous Soft Tissues: No paravertebral masses. Prevertebral soft tissues are normal in thicknes s. C2-C3: Loss of disc signal. Mild, diffuse disc bulge. No central stenosis. No neural foraminal narro wing. No neural compression. C3-C4: Loss of disc signal. Mild, diffuse disc bulge. Moderate bilateral facet hypertrophy. Mild li gamentum flavum hypertrophy. Mild bilateral uncovertebral joint hypertrophy. Moderate narrowing of th e central canal. Severe bilateral neural foraminal narrowing with compression of the exiting C4 nerve roots. C4-C5: Loss of disc signal. Mild to moderate diffuse disc bulge. Mild right and moderate left facet hypertrophy. Mild right and moderate left uncovertebral joint hypertrophy. Mild narrowing of the cent ral canal. Mild right and severe left neural foraminal narrowing with compression of the exiting left C5 nerve root. C5-C6: Loss of disc signal and height. Moderate, diffuse disc bulge. Moderate ligamentum flavum hype rtrophy. Mild bilateral facet hypertrophy. Moderate bilateral uncovertebral joint hypertrophy. Severe narrowing of the central canal with compression of the cervical spinal cord. Severe bilateral neural foraminal narrowing with compression of the exiting C6 nerve roots. C6-C7: Loss of disc signal. Mild, diffuse disc bulge. Mild bilateral facet hypertrophy. Mild bilater al uncovertebral joint hypertrophy. Mild narrowing of the central canal. Moderate bilateral neural fo raminal narrowing. No neural compression. C7-T1: Loss of disc signal. Minimal, diffuse disc bulge. Mild bilateral facet hypertrophy. No centra l stenosis. Mild bilateral neural foraminal narrowing. No neural compression. IMPRESSION: 1. Multilevel degenerative disc disease. 2. Multilevel facet and uncovertebral arthropathy. 3. Severe C5-C6 central canal narrowing with compression of the cervical spinal cord. 4. Severe bilateral C3-C4 and C5-C6 neural foraminal narrowing with compression of the exiting bilate ral C4 nerve root and the exiting bilateral C6 nerve roots. Severe left C4-C5 neural foraminal narrow ing with compression of the exiting left C5 nerve root. Reviewed by: Kinsey No MD, PhD on 10/09/2019 10:21 AM PDT Approved by: Kinsey No MD, PhD on 10/09/2019 10:21 AM PDT Station ID: [id number]
== END 2019-10-08 13:38 | disposition home or self-care (01) ==
LOC: DI 13:37
PROVIDERS: ATTEND Family Medicine
DX: M50.31 Other cervical disc degeneration, high cervical region (principal); M48.02 Spinal stenosis, cervical region; M47.812 Spondylosis without myelopathy or radiculopathy, cervical region
CPT/HCPCS: 72141

== ENCOUNTER 2019-11-12 14:21 | Outpatient (CLI) | payer MEDICARE ==
--- NOTE | 2019-11-13 09:09 | Mammography Report ---
BILATERAL DIGITAL DIAGNOSTIC MAMMOGRAM 3D/2D: 11/12/2019 CLINICAL: Post left lumpectomy and radiation therapy. Comparison is made to exams dated: 11/18/2018 mammogram, 11/18/2018 mammogram, 10/21/2018 mammogram, 2018 mammogram, 07/19/2017 mammogram, and 05/28/2016 mammogram - [facility]. There ar e scattered fibroglandular elements in both breasts. There is irregular equal density architectural distortion with an indistinct margin in the left breas t at 1 o'clock posterior depth. This correlates with surgery. There is a post-surgical scar, skin r etraction, thickening, and trabecular thickening associated with the architectural distortion. No other significant masses, calcifications, or other findings are seen in either breast. IMPRESSION: BENIGN The irregular equal density architectural distortion in the left breast is consistent with a previous surgery and is benign. There is no mammographic evidence of malignancy. A 1 year screening mammogram is recommended. This exam was interpreted at Station ID: [id number]. NOTE: For mammograms, a report in lay terms will be sent to the patient. Approximately 15% of breast malignancies will not be visualized mammographically. In the management of a palpable breast mass, a negative mammogram must not discourage biopsy of a clinically suspicious lesion. Electronically Signed By: Alex day/kae:11/12/2019 16:03:54 ACR BI-RADS Category 2: Benign Finding(s) 3342F PARENCHYMAL PATTERN: (A) - The breast(s) demonstrate(s) scattered fibroglandular densities. BI-RADS CATEGORY: (2) - 2 RECOMMENDATION: (ANNUAL) - Recommend routine annual screening mammography. [id number] 1 year screening LATERALITY: (B)
== END 2019-11-12 14:22 | disposition home or self-care (01) ==
LOC: DI 14:21
PROVIDERS: ATTEND Internal Medicine
DX: Z08 Encounter for follow-up examination after completed treatment for malignant neoplasm (principal); Z85.3 Personal history of malignant neoplasm of breast
CPT/HCPCS: 77066

== ENCOUNTER 2020-05-09 09:14 | Outpatient (CLI) | payer MEDICARE ==
--- NOTE | 2020-05-09 09:51 | XRAY Report ---
PROCEDURE: Knee 3 View RT INDICATIONS: R KNEE JOINT PX TECHNIQUE: 3 views of the right knee(s) were acquired. COMPARISON: None. FINDINGS: Bones: No fractures or dislocations. No suspicious bony lesions. There is moderate medial, lateral patellofemoral compartment narrowing. No erosions. Soft tissues: Mild joint effusion. No suspicious soft tissue calcifications. IMPRESSION: Tricompartmental arthritic change. Reviewed by: Jie Meza MD on 05/09/2020 8:49 AM [facility] Approved by: Jie Meza MD on 05/09/2020 8:49 AM [facility] Station ID: [id number]
== END 2020-05-09 09:15 | disposition home or self-care (01) ==
LOC: DI.N 09:14
PROVIDERS: ATTEND Family Medicine
DX: M25.561 Pain in right knee (principal); M25.461 Effusion, right knee; M17.11 Unilateral primary osteoarthritis, right knee

== ENCOUNTER 2020-10-07 11:20 | Outpatient (CLI) | payer MEDICARE ==
--- NOTE | 2020-10-10 14:01 | Mammography Report ---
BILATERAL DIGITAL DIAGNOSTIC MAMMOGRAM 3D/2D: 10/07/2020 CLINICAL: Short term follow up of the left breast, due for bilateral imaging. Comparison is made to exams dated: 11/12/2019 mammogram, 11/18/2018 mammogram, 11/18/2018 mammogram, 2018 localization, 10/23/2018 breast MRI, and 10/21/2018 mammogram - [facility]. There are scattered fibroglandular elements in both breasts. The left breast has post-operative findings. No significant masses, calcifications, or other findings are seen in either breast. IMPRESSION: NEGATIVE There is no mammographic evidence of malignancy. A 1 year screening mammogram is recommended; however, shorter interval surveillance can be considered at the direction of treating oncologic/surgical team. Findings and recommendations were conveyed to the patient during today's evaluation. This exam was interpreted at Station ID: [id number]. NOTE: For mammograms, a report in lay terms will be sent to the patient. Approximately 15% of breast malignancies will not be visualized mammographically. In the management of a palpable breast mass, a negative mammogram must not discourage biopsy of a clinically suspicious lesion. Electronically Signed By: Delvis Starr M.D. aty/:10/07/2020 12:17:55 ACR BI-RADS Category 1: Negative 3341F PARENCHYMAL PATTERN: (A) - The breast(s) demonstrate(s) scattered fibroglandular densities. BI-RADS CATEGORY: (1) - 1 RECOMMENDATION: (ANNUAL) - Recommend routine annual screening mammography. [id number] 1 year screening LATERALITY: (B)
== END 2020-10-07 11:21 | disposition home or self-care (01) ==
LOC: DI 11:20
PROVIDERS: ATTEND Surgery
DX: Z85.3 Personal history of malignant neoplasm of breast (principal)

== ENCOUNTER 2021-03-09 08:00 | Outpatient (CLI) | payer MEDICARE | END 2021-03-09 23:59 | LOC: LAB.N 08:00 | PROVIDERS: ATTEND Physician Assistant | DX: R52 Pain, unspecified (principal); R19.7 Diarrhea, unspecified; B34.9 Viral infection, unspecified; Z20.822 Contact with and (suspected) exposure to COVID-19 | CPT/HCPCS: 87275; 87276; U0004 ==

== ENCOUNTER 2021-03-21 16:26 | Outpatient (CLI) | payer MEDICARE ==
[2021-03-21 17:25] LABS: ALBUMIN 3.4 g/dL (3.2-5.5); ALBUMIN/GLOBULIN RATIO 0.9 (1.0-2.2); BILIRUBIN,TOTAL 0.7 mg/dL (0.2-1.0); CALCIUM 8.9 mg/dL (8.5-10.3); CREATININE 0.7 mg/dL (0.4-1.0); POTASSIUM 3.9 mmol/L (3.5-5.0)
[2021-03-21 18:29] LABS: BILIRUBIN,URINE NEGATIVE (NEGATIVE); GLUCOSE, URINE (UA) NEGATIVE (NEGATIVE); KETONES,URINE (UA) NEGATIVE (NEGATIVE); LEUKOCYTE ESTERASE, URINE NEGATIVE (NEGATIVE); NITRITE,URINE NEGATIVE (NEGATIVE); OCCULT BLOOD,URINE SMALL (NEGATIVE); PROTEIN,URINE NEGATIVE (NEGATIVE); UROBILINOGEN,URINE 0.2 (NORMAL) E.U./dL (NORMAL)
[2021-03-21] MEDS ORDERED: IOPAMIDOL-300 50 ML VIAL PO ONE (18:36)
[2021-03-21] MEDS ORDERED: iohexoL-300 100 ML VIAL IVP ONE (18:36)
[2021-03-21 18:39] LABS: CLARITY,URINE CLEAR (CLEAR)
--- NOTE | 2021-03-21 18:45 | CT Report ---
PROCEDURE: Abdomen/Pelvis W INDICATIONS: ABD PAIN CONTRAST: IV CONTRAST: Isovue 300 ml: 100 PO CONTRAST: Isovue 300 ml50 TECHNIQUE: After the administration of IV and oral contrast, 5 mm thick sections acquired from the diaphragms to the symphysis. 5 mm thick coronal and sagittal reformats were acquired. For radiation dose reducti on, the following was used: automated exposure control, adjustment of mA and/or kV according to dionna ent size. COMPARISON: None. FINDINGS: Image quality: Excellent. ABDOMEN: Lung bases: Lung bases are clear. Heart size is normal. Solid organs: Liver and spleen are normal in size and enhancement. Gallbladder is within normal sloan its Biliary system is non dilated. Pancreas enhances normally. No adrenal nodules. Kidneys demons trate normal size and enhancement, without hydronephrosis. Peritoneum and bowel: Stomach and small bowel are grossly unremarkable. Appendix is within normal sloan its. There is moderate diffuse colonic thickening and mild surrounding pericolonic fat stranding. Regina stomotic clips at the mid sigmoid colon. No free fluid or air. Nodes and vessels: No retroperitoneal or mesenteric adenopathy by size criteria. Aorta and inferior vena cava are normal in size. Miscellaneous: No ventral hernias. PELVIS: Genitourinary: Bladder wall thickness is normal. Miscellaneous: No inguinal hernias or adenopathy. Bones: No suspicious bony lesions. No vertebral body compression fractures. IMPRESSION: 1. Pancolitis . Differential considerations include infection, inflammation and ischemia. 2. Appendix not seen. No evidence of appendicitis. Reviewed by: Jose Elias Garcia MD on 03/21/2021 6:44 PM PST Approved by: Jose Elias Garcia MD on 03/21/2021 6:44 PM PST Station ID: [id number]
== END 2021-03-21 16:27 | disposition home or self-care (01) ==
LOC: LAB 16:26
PROVIDERS: ATTEND Physician Assistant Medical
DX: R10.84 Generalized abdominal pain (principal); K51.00 Ulcerative (chronic) pancolitis without complications
CPT/HCPCS: 36415; 80053; 81003; 83690

== ENCOUNTER 2021-03-22 08:00 | Outpatient (CLI) | payer MEDICARE ==
[2021-03-22 14:25] LABS: H. PYLORIS ANTIGEN STL NEGATIVE (Negative)
== END 2021-03-22 23:59 ==
LOC: LAB.R 08:00
PROVIDERS: ATTEND Physician Assistant Medical
DX: R19.7 Diarrhea, unspecified (principal); R10.84 Generalized abdominal pain
CPT/HCPCS: 81599; 83993; 87045; 87177; 87209; 87329; 87338; 87427; 87449; 87493

== ENCOUNTER 2021-04-27 08:08 | Outpatient (CLI) | payer MEDICARE ==
[2021-04-27 12:28] LABS: BASOPHILS # (AUTO) 0.2 10^3/uL (0.0-0.1); BASOPHILS % (AUTO) 1.6 %; EOSINOPHILS # (AUTO) 0.4 10^3/uL (0.0-0.7); EOSINOPHILS % (AUTO) 4.1 %; HCT - HEMATOCRIT 42.8 % (37.0-47.0); HGB - HEMOGLOBIN 14.1 g/dL (12.0-16.0); LYMPHOCYTES # (AUTO) 2.6 10^3/uL (1.5-3.5); LYMPHOCYTES % (AUTO) 27.3 %; MEAN CORPUSCULAR HEMOGLOBIN 29.9 pg (27.0-31.0); MEAN CORPUSCULAR HGB CONC 32.9 g/dL (32.0-36.0); MEAN CORPUSCULAR VOLUME 90.7 fL (81.0-99.0); MEAN PLATELET VOLUME 9.3 fL (7.9-10.8); MONOCYTES # (AUTO) 0.7 10^3/uL (0.0-1.0); MONOCYTES % (AUTO) 7.3 %; NEUTROPHILS # (AUTO) 5.7 10^3/uL (1.5-6.6); NEUTROPHILS % (AUTO) 59.4 %; PLT - PLATELET COUNT 395 10^3/uL (130-450); RED BLOOD COUNT 4.72 10^6/uL (4.20-5.40); RED CELL DISTRIBUTION WIDTH 14.6 % (12.0-15.0); WHITE BLOOD COUNT 9.6 x10^3/uL (4.8-10.8)
[2021-04-27 12:54] LABS: ALBUMIN/GLOBULIN RATIO 1.1 (1.0-2.2); ALKALINE PHOSPHATASE 52 IU/L (42-121); ALT ALANINE AMINOTRANSFERASE 22 IU/L (10-60); AST ASPARTATE AMINOTRANSFERASE 21 IU/L (10-42); BILIRUBIN,TOTAL 1.3 mg/dL (0.2-1.0); BUN - BLOOD UREA NITROGEN 13 mg/dL (6-20); CALCIUM 9.4 mg/dL (8.5-10.3); CARBON DIOXIDE - CO2 26 mmol/L (21-32); CHLORIDE 103 mmol/L (101-111); CREATININE 0.7 mg/dL (0.4-1.0); GFR - MDRD 80 (>89); GLUCOSE 100 mg/dL (70-100); LIPASE 36 U/L (22-51); POTASSIUM 4.2 mmol/L (3.5-5.0); SODIUM 139 mmol/L (135-145); TOTAL PROTEIN 7.7 g/dL (6.7-8.2)
[2021-04-27 12:55] LABS: CRP - C-REACTIVE PROTEIN < 1.0 mg/dL (0-1.0)
== END 2021-04-27 08:09 | disposition home or self-care (01) ==
LOC: LAB.N 08:08
PROVIDERS: ATTEND Physician Assistant Medical
DX: R10.84 Generalized abdominal pain (principal); R19.7 Diarrhea, unspecified
CPT/HCPCS: 36415; 80053; 83690; 85025; 85651; 86140

== ENCOUNTER 2022-01-15 13:12 | Outpatient (CLI) | payer MEDICARE | END 2022-01-15 13:13 | disposition home or self-care (01) | LOC: MAC.MOP 13:12 | PROVIDERS: ATTEND Family Medicine | DX: R42 Dizziness and giddiness (principal) | CPT/HCPCS: 93246 ==

== ENCOUNTER 2022-01-17 10:48 | Outpatient (CLI) | payer MEDICARE ==
[2022-01-17 17:45] LABS: BASOPHILS # (AUTO) 0.1 10^3/uL (0.0-0.1); BASOPHILS % (AUTO) 1.2 %; EOSINOPHILS # (AUTO) 0.3 10^3/uL (0.0-0.7); EOSINOPHILS % (AUTO) 3.1 %; HCT - HEMATOCRIT 45.1 % (37.0-47.0); HGB - HEMOGLOBIN 14.4 g/dL (12.0-16.0); LYMPHOCYTES # (AUTO) 1.9 10^3/uL (1.5-3.5); LYMPHOCYTES % (AUTO) 20.6 %; MEAN CORPUSCULAR HEMOGLOBIN 29.6 pg (27.0-31.0); MEAN CORPUSCULAR HGB CONC 31.9 g/dL (32.0-36.0); MEAN CORPUSCULAR VOLUME 92.8 fL (81.0-99.0); MEAN PLATELET VOLUME 9.8 fL (7.9-10.8); MONOCYTES # (AUTO) 0.7 10^3/uL (0.0-1.0); MONOCYTES % (AUTO) 7.8 %; NEUTROPHILS # (AUTO) 6.2 10^3/uL (1.5-6.6); PLT - PLATELET COUNT 403 10^3/uL (130-450); RED BLOOD COUNT 4.86 10^6/uL (4.20-5.40); RED CELL DISTRIBUTION WIDTH 14.4 % (12.0-15.0); WHITE BLOOD COUNT 9.2 x10^3/uL (4.8-10.8)
[2022-01-17 17:56] LABS: ALBUMIN 4.1 g/dL (3.2-5.5); ALBUMIN/GLOBULIN RATIO 1.1 (1.0-2.2); BILIRUBIN,TOTAL 1.3 mg/dL (0.2-1.0); CALCIUM 9.4 mg/dL (8.5-10.3); CREATININE 0.8 mg/dL (0.4-1.0); POTASSIUM 4.3 mmol/L (3.5-5.0); TOTAL PROTEIN 7.8 g/dL (6.7-8.2)
[2022-01-17 18:12] LABS: THYROID STIMULATING HORMONE 2.11 uIU/mL (0.34-5.60)
== END 2022-01-17 10:49 | disposition home or self-care (01) ==
LOC: LAB.N 10:48
PROVIDERS: ATTEND Family Medicine
DX: D50.9 Iron deficiency anemia, unspecified (principal); R42 Dizziness and giddiness; M54.12 Radiculopathy, cervical region
CPT/HCPCS: 36415; 80053; 84443; 85025

== ENCOUNTER → 2022-02-07 | Outpatient (CLI) | payer MEDICARE | LOC: MAC.MOP 10:30 | PROVIDERS: ATTEND Family Medicine | DX: I47.1 Supraventricular tachycardia (principal); I49.1 Atrial premature depolarization; I49.3 Ventricular premature depolarization | CPT/HCPCS: 93248 ==

== ENCOUNTER 2022-03-27 14:36 | Outpatient (CLI) | payer MEDICARE, OTHER | END 2022-03-27 14:37 | disposition home or self-care (01) | LOC: DI 14:36 | PROVIDERS: ATTEND Family Medicine | DX: I47.1 Supraventricular tachycardia (principal); R06.09 Other forms of dyspnea | CPT/HCPCS: 93306 ==

== ENCOUNTER 2022-05-16 13:53 | Outpatient (CLI) | payer MEDICARE ==
--- NOTE | 2022-05-16 17:30 | Ultrasound Report ---
PROCEDURE: Carotid Doppler Complete INDICATIONS: CAROTID BRUIT TECHNIQUE: Color and pulse Doppler interrogation was performed of both carotid systems, with image documentation and velocity measurements. COMPARISON: None. FINDINGS: Right side: Brachial blood pressure: 120/54 mm Hg. Common carotid artery peak systolic velocity: 70 cm/sec. Internal carotid artery peak systolic velocity: 95 cm/sec. Internal carotid artery end diastolic velocity: 28 cm/sec. External carotid artery peak systolic velocity: 73 cm/sec. ICA/CCA peak systolic ratio: 1.36 . Simmons scale imaging description: Trace atheromatous plaque is present in the internal carotid artery. Percent internal carotid artery stenosis: Less than 50% stenosis . Vertebral artery: Flow direction is antegrade. Left side: Brachial blood pressure: 119/56 mm Hg. Common carotid artery peak systolic velocity: 71 cm/sec. Internal carotid artery peak systolic velocity: 99 cm/sec. Internal carotid artery end diastolic velocity: 34 cm/sec. External carotid artery peak systolic velocity: 65 cm/sec. ICA/CCA peak systolic ratio: 1.39 . Simmons scale imaging description: Trace atheromatous plaque is present in the internal carotid artery. Percent internal carotid artery stenosis: Less than 50% stenosis . Vertebral artery: Flow direction is antegrade. IMPRESSION: Less than 50% stenosis of the bilateral internal carotid arteries. The estimate of stenosis included in the report of the imaging study was calculated using the NASCET method Reviewed by: Andria Bran MD on 05/16/2022 5:29 PM PST Approved by: Andria Bran MD on 05/16/2022 5:29 PM PST Station ID: [id number]
== END 2022-05-16 13:54 | disposition home or self-care (01) ==
LOC: DI 13:53
PROVIDERS: ATTEND Family Medicine
DX: R09.89 Other specified symptoms and signs involving the circulatory and respiratory systems (principal)
CPT/HCPCS: 93880

== ENCOUNTER 2023-08-05 10:10 | Outpatient (CLI) | payer MEDICARE ==
--- NOTE | 2023-08-06 10:19 | Mammography Report ---
BILATERAL DIGITAL SCREENING MAMMOGRAM 3D/2D: 08/05/2023 CLINICAL: Routine screening. Personal history of left breast cancer. Comparison is made to exams dated: 12/29/2021 mammogram, 10/07/2020 mammogram, 11/12/2019 mammogram, mammogram, and 11/18/2018 mammogram - [facility]. There are scattered areas of fibroglandular density in both breasts (category b / 25%-50% glandular t issue). There are benign post operative findings in the left breast. No significant masses, calcifications, or other findings are seen in either breast. There has been no significant interval change. IMPRESSION: BENIGN There is no mammographic evidence of malignancy. A 1 year screening mammogram is recommended. This exam was interpreted at Station ID: [id number]. NOTE: For mammograms, a report in lay terms will be sent to the patient. Approximately 15% of breast malignancies will not be visualized mammographically. In the management of a palpable breast mass, a negative mammogram must not discourage biopsy of a clinically suspicious lesion. Electronically Signed By: Benjamín Samuel M.D. [facility] [place]:08/05/2023 18:45:11 letter sent: No_Letter ACR BI-RADS Category 2: Benign Finding(s) 3342F PARENCHYMAL PATTERN: (A) - The breast(s) demonstrate(s) scattered fibroglandular densities. BI-RADS CATEGORY: (2) - 2 RECOMMENDATION: (ANNUAL) - Recommend routine annual screening mammography. [id number] 1 year screening LATERALITY: (B)
== END 2023-08-05 10:11 | disposition home or self-care (01) ==
LOC: DI 10:10
PROVIDERS: ATTEND Family Medicine
DX: Z12.31 Encounter for screening mammogram for malignant neoplasm of breast (principal); R92.323 Mammographic fibroglandular density, bilateral breasts; Z85.3 Personal history of malignant neoplasm of breast

== ENCOUNTER 2023-08-05 10:12 | Outpatient (CLI) | payer MEDICARE ==
--- NOTE | 2023-08-05 17:11 | DEXA Report ---
PROCEDURE: Dexa Spine and/or Hip INDICATIONS: POST MENOPAUSAL TECHNIQUE: Dual energy x-ray absorptiometry (DXA) was performed on a Zebit System. Regions measur ed are the AP Spine, femoral neck, and if needed forearm. COMPARISON: 05/08/2018 FINDINGS: Lumbar Spine: Bone Mineral Density: 0.937 g/cm/cm,T score: -1.9. Since the most recent prior study, there has been a statistically significant increase in bone mineral density by 0.1 percent. Left Femoral Neck: Bone Mineral Density: 0.827 g/cm/cm, T score: -1.5. Left Hip: Bone Mineral Density: 0.762 g/cm/cm,T score: -1.9. Since the most recent prior study, there has been a statistically significant decrease in bone mineral density by 5.6 percent. (T score greater or equal to -1.0: NORMAL) (T score from -1.1 to -2.4: OSTEOPENIA) (T score less than or equal to -2.5 to: OSTEOPOROSIS) Impression: By WHO criteria, this patient has low bone density (osteopenia). Interval statistical increase in bone mineral density of the lumbar spine. Interval statistical decre ase in bone mineral density of the hip. Patients with diagnosis of osteoporosis or osteopenia should have regular bone mineral density assess ment. For those eligible for Medicare, routine testing is allowed once every 2 years. Testing frequ ency can be increased for patients who have rapidly progressing disease or for those who are receivin g medical therapy to restore bone mass. Reviewed by: Oneil Hightower MD on 08/05/2023 5:10 PM PDT Approved by: Oneil Hightower MD on 08/05/2023 5:10 PM PDT Station ID: [id number]
== END 2023-08-05 10:13 | disposition home or self-care (01) ==
LOC: DI 10:12
PROVIDERS: ATTEND Family Medicine
DX: M85.89 Other specified disorders of bone density and structure, multiple sites (principal); Z78.0 Asymptomatic menopausal state

== ENCOUNTER 2023-10-29 10:44 | Outpatient (CLI) | payer MEDICARE ==
[2023-10-29 17:48] LABS: HCT - HEMATOCRIT 44.1 % (37.0-47.0); HGB - HEMOGLOBIN 14.5 g/dL (12.0-16.0); MEAN CORPUSCULAR HEMOGLOBIN 30.4 pg (27.0-31.0); MEAN CORPUSCULAR HGB CONC 32.9 g/dL (32.0-36.0); MEAN CORPUSCULAR VOLUME 92.5 fL (81.0-99.0); MEAN PLATELET VOLUME 9.7 fL (7.9-10.8); RED BLOOD COUNT 4.77 10^6/uL (4.20-5.40); RED CELL DISTRIBUTION WIDTH 14.6 % (12.0-15.0); WHITE BLOOD COUNT 10.6 x10^3/uL (4.8-10.8)
[2023-10-29 17:59] LABS: CHOL/HDL RATIO 3.1 (<4.4); CHOLESTEROL 245 mg/dL; CRP - C-REACTIVE PROTEIN < 0.5 mg/dL (<0.5); HDL CHOLESTEROL 78 mg/dL; LDL CHOLESTEROL,CALCULATED 137 mg/dL; LDL/HDL RATIO 1.8 (<4.4); TRIGLYCERIDES 149 mg/dL; VLDL CHOLESTEROL 30 mg/dL
[2023-10-29 18:13] LABS: THYROID STIMULATING HORMONE 2.14 uIU/mL (0.34-5.60)
[2023-10-30 03:11] LABS: RPR Non Reactive (Non Reactive)
[2023-10-31 16:08] LABS: ANTINUCLEAR ANTIBODIES IFA Negative (.)
== END 2023-10-29 10:45 | disposition home or self-care (01) ==
LOC: LAB.N 10:44
PROVIDERS: ATTEND Family Medicine
DX: I65.29 Occlusion and stenosis of unspecified carotid artery (principal); R53.83 Other fatigue; R21 Rash and other nonspecific skin eruption
CPT/HCPCS: 36415; 80061; 83721; 84443; 85027; 85651; 86038; 86140; 86592